=== PATIENT | female | born 1975 | race African-American/Black ===

== ENCOUNTER 2017-05-02 10:39 | Emergency (ER) | payer OTHER, SELFPAY ==
[2017-05-02] MEDS ORDERED: Ketorolac 30 MG/ML SDV IVPUSH ONE (11:06)
--- NOTE | 2017-05-02 11:08 | EDM.PDOC ---
ED HPI GENERAL MEDICAL PROBLEM - General Chief Complaint: Abdominal Pain Stated Complaint: ABDOMINAL PAIN Time Seen by Provider: 05/02/17 10:40 Source of Information: Reports: Patient History Limitations: Reports: No Limitations - History of Present Illness INITIAL COMMENTS - FREE TEXT/NARRATIVE: History of present illness: []Patient has a known diagnosis of a uterine fibroid and is scheduled to have removed by Dr. Bo. However she has not called to schedule the appointment. Patient denies any vaginal bleeding, fevers, chills, nausea or vomiting. Patient states her last menstrual period was March 20, she denies being . Review of systems: As per history of present illness and below otherwise all systems reviewed and negative. Past medical history: As per history of present illness and as reviewed below otherwise noncontributory. Surgical history: As per history of present illness and as reviewed below otherwise noncontributory. Social history: No reported history of drug or alcohol abuse. Family history: As per history of present illness and as reviewed below otherwise noncontributory. Physical exam: General: Well developed, well nourished in NAD HEENT: Atraumatic, normocephalic, pupils reactive, negative for conjunctival pallor or scleral icterus, mucous membranes moist, throat clear, neck supple, nontender, trachea midline. Lungs: Clear to auscultation, breath sounds equal bilaterally, chest nontender. Heart: S1S2, regular, negative for clicks, rubs, or JVD. Abdomen: Soft, nondistended, suprapubic tenderness without rebound or guarding. Negative for masses or hepatosplenomegaly. Negative for costovertebral tenderness. Pelvis: Stable nontender. Genitourinary: Deferred. Rectal: Deferred. Extremities: Atraumatic, negative for cords or calf pain. Neurovascular unremarkable. Neuro: Awake, alert, oriented. Cranial nerves II through XII unremarkable. Cerebellum unremarkable. Motor and sensory unremarkable throughout. Exam nonfocal. Diagnostics: []Patient's urine came back positive and ultrasound was then ordered. Her hCG came back at 225 correlating with a 4-5 week , ultrasound shows no gestational sac this time and cannot rule out an ectopic . She has no lateral pain labs are normal. Dr. Bo was consulted and he would like her to have hCG in 2 days and then see her in clinic on May 06 this week. Therapeutics: [] Impression: []First trimester Plan: []HCG Quant to be drawn in 2 days follow-up with Dr. Bo Tuesday this week when he Definitive disposition and diagnosis as appropriate pending reevaluation and review of above. abdomen Pain Score (Numeric/FACES): 8 - Related Data Allergies Allergy/AdvReac Type Severity Reaction Status Date / Time No Known Allergies Allergy Verified 05/02/17 10:59 Home Meds: Home Meds . [No Known Home Meds] 05/02/17 [History] ED ROS GENERAL - Review of Systems Review Of Systems: See Below (See history of present illness) ED EXAM, RENAL/ - Physical Exam Exam: See Below (See history of present illness) Course - Vital Signs Last Recorded V/S: Last Vital Signs Temp 36.8 C 05/02/17 10:59 Pulse 80 05/02/17 10:59 Resp 18 05/02/17 10:59 BP 141/94 H 05/02/17 10:59 Pulse Ox 98 05/02/17 10:59 - Orders/Labs/Meds Orders: Active Orders 24 hr Category Date Time Status Saline Lock Insert [OM.PC] Stat Oth 05/02/17 10:57 Ordered Labs: Laboratory Tests 05/02/17 05/02/17 05/02/17 Range/Units 10:50 10:55 10:55 WBC 10.10 (4.0-11.0) K/uL RBC 4.34 (4.30-5.90) M/uL Hgb 11.4 L (12.0-16.0) g/dL Hct 35.3 L (36.0-46.0) % MCV 81.3 (80.0-98.0) fL MCH 26.3 L (27.0-32.0) pg MCHC 32.3 (31.0-37.0) g/dL RDW Std Deviation 54.0 (28.0-62.0) fl RDW Coeff of Jarvis 18 H (11.0-15.0) % Plt Count 331 (150-400) K/uL MPV 11.30 (7.40-12.00) fL Neut % (Auto) 67.8 (48.0-80.0) % Lymph % (Auto) 19.2 (16.0-40.0) % [place] % (Auto) 9.4 (0.0-15.0) % Eos % (Auto) 3.4 (0.0-7.0) % Baso % (Auto) 0.2 (0.0-1.5) % Neut # (Auto) 6.9 H (1.4-5.7) K/uL Lymph # (Auto) 1.9 (0.6-2.4) K/uL [place] # (Auto) 1.0 H (0.0-0.8) K/uL Eos # (Auto) 0.3 (0.0-0.7) K/uL Baso # (Auto) 0.0 (0.0-0.1) K/uL Nucleated RBC % 0.0 /100WBC Nucleated RBCs # 0 K/uL Sodium Cancelled Potassium Cancelled Chloride Cancelled Carbon Dioxide Cancelled BUN Cancelled Creatinine Cancelled Est Cr Clr Drug Dosing Cancelled Estimated GFR (MDRD) Cancelled Glucose Cancelled Calcium Cancelled Total Bilirubin Cancelled AST Cancelled ALT Cancelled Alkaline Phosphatase Cancelled Total Protein Cancelled Albumin Cancelled Globulin Cancelled Albumin/Globulin Ratio Cancelled Lipase Cancelled HCG, Quant 225.3 mIU/mL Urine Color Urine Appearance Urine pH (5.0-8.0) Ur Specific [place] (1.001-1.035) Urine Protein (NEGATIVE) mg/dL Urine Glucose (UA) (NEGATIVE) mg/dL Urine Ketones (NEGATIVE) mg/dL Urine Occult Blood (NEGATIVE) Urine Nitrite (NEGATIVE) Urine Bilirubin (NEGATIVE) Urine Urobilinogen (<2.0) EU/dL Ur Leukocyte Esterase (NEGATIVE) Urine RBC (0-2/HPF) Urine WBC (0-5/HPF) Ur Epithelial Cells (NONE-FEW) Urine Bacteria (NEGATIVE) Urine HCG, Qual (NEGATIVE) 05/02/17 05/02/17 Range/Units 10:55 10:55 WBC (4.0-11.0) K/uL RBC (4.30-5.90) M/uL Hgb (12.0-16.0) g/dL Hct (36.0-46.0) % MCV (80.0-98.0) fL MCH (27.0-32.0) pg MCHC (31.0-37.0) g/dL RDW Std Deviation (28.0-62.0) fl RDW Coeff of Jarvis (11.0-15.0) % Plt Count (150-400) K/uL MPV (7.40-12.00) fL Neut % (Auto) (48.0-80.0) % Lymph % (Auto) (16.0-40.0) % [place] % (Auto) (0.0-15.0) % Eos % (Auto) (0.0-7.0) % Baso % (Auto) (0.0-1.5) % Neut # (Auto) (1.4-5.7) K/uL Lymph # (Auto) (0.6-2.4) K/uL [place] # (Auto) (0.0-0.8) K/uL Eos # (Auto) (0.0-0.7) K/uL Baso # (Auto) (0.0-0.1) K/uL Nucleated RBC % /100WBC Nucleated RBCs # K/uL Sodium Potassium Chloride Carbon Dioxide BUN Creatinine Est Cr Clr Drug Dosing Estimated GFR (MDRD) Glucose Calcium Total Bilirubin AST ALT Alkaline Phosphatase Total Protein Albumin Globulin Albumin/Globulin Ratio Lipase HCG, Quant mIU/mL Urine Color YELLOW Urine Appearance CLEAR Urine pH 7.0 (5.0-8.0) Ur Specific [place] 1.020 (1.001-1.035) Urine Protein NEGATIVE (NEGATIVE) mg/dL Urine Glucose (UA) NEGATIVE (NEGATIVE) mg/dL Urine Ketones NEGATIVE (NEGATIVE) mg/dL Urine Occult Blood NEGATIVE (NEGATIVE) Urine Nitrite NEGATIVE (NEGATIVE) Urine Bilirubin NEGATIVE (NEGATIVE) Urine Urobilinogen 0.2 (<2.0) EU/dL Ur Leukocyte Esterase TRACE (NEGATIVE) Urine RBC 0-2 (0-2/HPF) Urine WBC 0-4 (0-5/HPF) Ur Epithelial Cells FEW (NONE-FEW) Urine Bacteria FEW (NEGATIVE) Urine HCG, Qual POSITIVE (NEGATIVE) Meds: Medications Discontinued Medications Generic Name Dose Route Start Last Admin Trade Name Freq PRN Reason Stop Dose Admin Ketorolac Tromethamine 30 mg 05/02/17 11:06 05/02/17 11:16 Toradol IVPUSH 05/02/17 11:07 30 mg ONETIME ONE Administration Departure - Departure Time of Disposition: 13:16 Disposition: Home, Self-Care 01 Condition: Good Clinical Impression: Qualifiers: Weeks of gestation: less than 8 weeks Qualified Code(s): Z3A.01 - Less than 8 weeks gestation of - Discharge Information Referrals: PCP,None [Primary Care Provider] - Forms: ED Department Discharge Additional Instructions: The following information is given to patients seen in the emergency department who are being discharged to home. This information is to outline your options for follow-up care. We provide all patients seen in our emergency department with a follow-up referral. The need for follow-up, as well as the timing and circumstances, are variable depending upon the specifics of your emergency department visit. If you don't have a primary care physician on staff, we will provide you with a referral. We always advise you to contact your personal physician following an emergency department visit to inform them of the circumstance of the visit and for follow-up with them and/or the need for any referrals to a consulting specialist. The emergency department will also refer you to a specialist when appropriate. This referral assures that you have the opportunity for follow-up care with a specialist. All of these measure are taken in an effort to provide you with optimal care, which includes your follow-up. Under all circumstances we always encourage you to contact your private physician who remains a resource for coordinating your care. When calling for follow-up care, please make the office aware that this follow-up is from your recent emergency room visit. If for any reason you are refused follow-up, please contact the [facility] Emergency Department at and asked to speak to the emergency department charge nurse. Diagnosed with early . The ultrasound does not show sign of this however it may be too early in her to be detectable by ultrasound. Please have repeat hCG level draw in 2 days and follow-up with Dr. Bo on May 06 [facility] [address] [place] [id number] - My Orders Last 24 Hours: My Active Orders 05/02/17 10:57 Saline Lock Insert [OM.PC] Stat - Assessment/Plan Last 24 Hours: My Active Orders 05/02/17 10:57 Saline Lock Insert [OM.PC] Stat
--- NOTE | 2017-05-02 13:07 | US ---
EXAMINATION: Transabdominal and transvaginal pelvic ultrasound HISTORY: Pain COMPARISON: None TECHNIQUE: Grayscale, color Doppler, and spectral Doppler images obtained transvaginally and transab dominally. FINDINGS: The uterus is enlarged and heterogeneous in echotexture, likely containing multiple fibroi ds. The endometrial stripe thickness measures approximately 8 mm. No intrauterine gestational sac id entified. There is a 1.9 cm nabothian cyst. Both the left and right ovaries are normal in size, contour, and echogenicity demonstrating normal c olor and spectral Doppler flow. No adnexal masses. There is a small to moderate amount of free pelvi c fluid. No adnexal masses. IMPRESSION: 1. No intrauterine gestational sac identified, an ectopic is not excluded. Correlate with beta hCG. Follow-up beta-hCG and ultrasound may be beneficial. 2. Small to moderate free pelvic fluid. Line 3. Enlarged heterogeneous uterus likely containing multiple fibroids.
[2017-05-02 13:35] VITALS: BP 136/70
== END 2017-05-02 13:34 | disposition home or self-care (01) ==
LOC: MW.ED 10:39
DX: O99.89 Other specified diseases and conditions complicating pregnancy, childbirth and the puerperium (principal); R10.9 Unspecified abdominal pain; Z3A.01 Less than 8 weeks gestation of pregnancy
CPT/HCPCS: 36415; 76817; 81001; 81025; 84702; 85025; 96374; 99284; J1885

== ENCOUNTER 2017-06-05 15:33 | Emergency (ER) | payer OTHER, SELFPAY ==
--- NOTE | 2017-06-05 15:56 | EDM.PDOC ---
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 WITH CONTRACTIONS Time Seen by Provider: 06/05/17 15:56 Source of Information: Reports: Patient - History of Present Illness INITIAL COMMENTS - FREE TEXT/NARRATIVE: HISTORY AND PHYSICAL: History of present illness: []Patient -2 had a weeks presents with vaginal bleeding intermittently over the last 2 days and low back pain had 8 weeks by history Currently she rates pain 8 out of 10 low back abdomen pelvis patient is uncomfortable No fever nausea vomiting chills sweats no chest pain shortness breath headache dizziness or palpitation no bowel or urine symptoms Review of systems: As per history of present illness and below otherwise all systems reviewed and negative. Past medical history: As per history of present illness and as reviewed below otherwise noncontributory. Surgical history: As per history of present illness and as reviewed below otherwise noncontributory. Social history: No reported history of drug or alcohol abuse. Family history: As per history of present illness and as reviewed below otherwise noncontributory. Physical exam: HEENT: Atraumatic, normocephalic, pupils reactive, negative for conjunctival pallor or scleral icterus, mucous membranes moist, throat clear, neck supple, nontender, trachea midline. Lungs: Clear to auscultation, breath sounds equal bilaterally, chest nontender. Heart: S1S2, regular, negative for clicks, rubs, or JVD. Abdomen: Soft, nondistended, nontender. Negative for masses or hepatosplenomegaly. Negative for costovertebral tenderness. Pelvis: Stable nontender. Genitourinary: Deferred. Rectal: Deferred. Extremities: Atraumatic, negative for cords or calf pain. Neurovascular unremarkable. Neuro: Awake, alert, oriented. Cranial nerves II through XII unremarkable. Cerebellum unremarkable. Motor and sensory unremarkable throughout. Exam nonfocal. Diagnostics: []Lab as below Therapeutics: []Morphine 2 mg IV Dilaudid 1 mg IV discussed with he will see her in the clinic tomorrow Impression: Blighted ovum ABO type O posative Since approximately 8 weeks by uncertain dates Definitive disposition and diagnosis as appropriate pending reevaluation and review of above. 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 ED EXAM, GENERAL - Physical Exam Exam: See Below Course - Vital Signs Last Recorded V/S: Last Vital Signs Temp 36.1 C 06/05/17 15:43 Pulse 82 06/05/17 15:43 Resp 18 06/05/17 15:43 BP 151/100 H 06/05/17 15:43 Pulse Ox 98 06/05/17 15:43 - Orders/Labs/Meds Orders: Active Orders 24 hr Category Date Time Status OB 1st Tri Sgl 1st Gest [US] Stat Exams 06/05/17 17:04 Taken CULTURE URINE [] Stat Lab 06/05/17 16:40 Received Labs: Laboratory Tests 06/05/17 06/05/17 06/05/17 Range/Units 16:04 16:04 16:04 WBC 11.50 H (4.0-11.0) K/uL RBC 4.26 L (4.30-5.90) M/uL Hgb 11.9 L (12.0-16.0) g/dL Hct 35.4 L (36.0-46.0) % MCV 83.1 (80.0-98.0) fL MCH 27.9 (27.0-32.0) pg MCHC 33.6 (31.0-37.0) g/dL RDW Std Deviation 55.4 (28.0-62.0) fl RDW Coeff of Jarvis 18 H (11.0-15.0) % Plt Count 317 (150-400) K/uL MPV 11.10 (7.40-12.00) fL Neut % (Auto) 71.0 (48.0-80.0) % Lymph % (Auto) 16.2 (16.0-40.0) % [place] % (Auto) 9.0 (0.0-15.0) % Eos % (Auto) 3.7 (0.0-7.0) % Baso % (Auto) 0.1 (0.0-1.5) % Neut # (Auto) 8.2 H (1.4-5.7) K/uL Lymph # (Auto) 1.9 (0.6-2.4) K/uL [place] # (Auto) 1.0 H (0.0-0.8) K/uL Eos # (Auto) 0.4 (0.0-0.7) K/uL Baso # (Auto) 0.0 (0.0-0.1) K/uL Nucleated RBC % 0.0 /100WBC Nucleated RBCs # 0 K/uL Sodium 136 (136-146) mmol/L Potassium 3.6 (3.5-5.1) mmol/L Chloride 104 (98-110) mmol/L Carbon Dioxide 23 (21-31) mmol/L BUN 11 (6.0-23.0) mg/dL Creatinine 0.7 (0.6-1.5) mg/dL Est Cr Clr Drug Dosing 86.60 mL/min Estimated GFR (MDRD) > 60.0 ml/min Glucose 133 H (60-110) mg/dL Calcium 9.4 (8.8-10.8) mg/dL Total Bilirubin 0.2 (0.1-1.5) mg/dL AST 12 (5-40) IU/L ALT 16 (8-54) IU/L Alkaline Phosphatase 82 (40-150) Total Protein 7.2 (6.0-8.0) g/dL Albumin 3.7 (3.5-5.0) g/dL Globulin 3.5 (2.0-3.5) g/dL Albumin/Globulin Ratio 1.1 L (1.3-2.8) HCG, Quant 23507.7 mIU/mL Urine Color Urine Appearance Urine pH (5.0-8.0) Ur Specific [place] (1.001-1.035) Urine Protein (NEGATIVE) mg/dL Urine Glucose (UA) (NEGATIVE) mg/dL Urine Ketones (NEGATIVE) mg/dL Urine Occult Blood (NEGATIVE) Urine Nitrite (NEGATIVE) Urine Bilirubin (NEGATIVE) Urine Urobilinogen (<2.0) EU/dL Ur Leukocyte Esterase (NEGATIVE) Urine RBC (0-2/HPF) Urine WBC (0-5/HPF) Ur Epithelial Cells (NONE-FEW) Urine Bacteria (NEGATIVE) Blood Type O POSITIVE 06/05/17 Range/Units 16:40 WBC (4.0-11.0) K/uL RBC (4.30-5.90) M/uL Hgb (12.0-16.0) g/dL Hct (36.0-46.0) % MCV (80.0-98.0) fL MCH (27.0-32.0) pg MCHC (31.0-37.0) g/dL RDW Std Deviation (28.0-62.0) fl RDW Coeff of [place]vis (11.0-15.0) % Plt Count (150-400) K/uL MPV (7.40-12.00) fL Neut % (Auto) (48.0-80.0) % Lymph % (Auto) (16.0-40.0) % [place] % (Auto) (0.0-15.0) % Eos % (Auto) (0.0-7.0) % Baso % (Auto) (0.0-1.5) % Neut # (Auto) (1.4-5.7) K/uL Lymph # (Auto) (0.6-2.4) K/uL [place] # (Auto) (0.0-0.8) K/uL Eos # (Auto) (0.0-0.7) K/uL Baso # (Auto) (0.0-0.1) K/uL Nucleated RBC % /100WBC Nucleated RBCs # K/uL Sodium (136-146) mmol/L Potassium (3.5-5.1) mmol/L Chloride (98-110) mmol/L Carbon Dioxide (21-31) mmol/L BUN (6.0-23.0) mg/dL Creatinine (0.6-1.5) mg/dL Est Cr Clr Drug Dosing mL/min Estimated GFR (MDRD) ml/min Glucose (60-110) mg/dL Calcium (8.8-10.8) mg/dL Total Bilirubin (0.1-1.5) mg/dL AST (5-40) IU/L ALT (8-54) IU/L Alkaline Phosphatase (40-150) Total Protein (6.0-8.0) g/dL Albumin (3.5-5.0) g/dL Globulin (2.0-3.5) g/dL Albumin/Globulin Ratio (1.3-2.8) HCG, Quant mIU/mL Urine Color YELLOW Urine Appearance SLT CLOUDY Urine pH 6.5 (5.0-8.0) Ur Specific [place] <= 1.005 (1.001-1.035) Urine Protein NEGATIVE (NEGATIVE) mg/dL Urine Glucose (UA) NEGATIVE (NEGATIVE) mg/dL Urine Ketones NEGATIVE (NEGATIVE) mg/dL Urine Occult Blood LARGE H (NEGATIVE) Urine Nitrite NEGATIVE (NEGATIVE) Urine Bilirubin NEGATIVE (NEGATIVE) Urine Urobilinogen 0.2 (<2.0) EU/dL Ur Leukocyte Esterase TRACE (NEGATIVE) Urine RBC 2-3 (0-2/HPF) Urine WBC 2-5 (0-5/HPF) Ur Epithelial Cells MANY (NONE-FEW) Urine Bacteria 1+ H (NEGATIVE) Blood Type Meds: Medications Discontinued Medications Generic Name Dose Route Start Last Admin Trade Name Freq PRN Reason Stop Dose Admin Hydromorphone HCl 1 mg 06/05/17 18:40 06/05/17 18:50 Dilaudid IVPUSH 06/05/17 18:41 1 mg ONETIME ONE Administration Morphine Sulfate 2 mg 06/05/17 16:18 06/05/17 16:43 Morphine IV 06/05/17 16:19 2 mg ONETIME ONE Administration Ondansetron HCl 8 mg 06/05/17 16:18 06/05/17 16:44 Zofran IVPUSH 06/05/17 16:19 8 mg ONETIME ONE Administration Departure - Departure Time of Disposition: 18:53 Disposition: Home, Self-Care 01 Condition: Good Clinical Impression: Blighted ovum - Discharge Information Referrals: Connor Bo MD [Primary Care Provider] - Forms: ED Department Discharge Additional Instructions: Follow-up with Dr. Bo tomorrow in his clinic he will be expecting Medication as prescribed for pain Return if symptoms persist or worsen or fever nausea vomiting chills sweats The following information is given to patients seen in the emergency department who are being discharged to home. This information is to outline your options for follow-up care. We provide all patients seen in our emergency department with a follow-up referral. The need for follow-up, as well as the timing and circumstances, are variable depending upon the specifics of your emergency department visit. If you don't have a primary care physician on staff, we will provide you with a referral. We always advise you to contact your personal physician following an emergency department visit to inform them of the circumstance of the visit and for follow-up with them and/or the need for any referrals to a consulting specialist. The emergency department will also refer you to a specialist when appropriate. This referral assures that you have the opportunity for follow-up care with a specialist. All of these measure are taken in an effort to provide you with optimal care, which includes your follow-up. Under all circumstances we always encourage you to contact your private physician who remains a resource for coordinating your care. When calling for follow-up care, please make the office aware that this follow-up is from your recent emergency room visit. If for any reason you are refused follow-up, please contact the [facility] emergency department at and asked to speak to the emergency department charge nurse. - My Orders Last 24 Hours: My Active Orders 06/05/17 16:40 CULTURE URINE [RM] Stat 06/05/17 17:04 OB 1st Tri Sgl 1st Gest [US] Stat - Assessment/Plan Last 24 Hours: My Active Orders 06/05/17 16:40 CULTURE URINE [RM] Stat 06/05/17 17:04 OB 1st Tri Sgl 1st Gest [US] Stat
[2017-06-05] MEDS ORDERED: Ondansetron 4 MG/2 ML SDV IVPUSH ONE (16:18)
[2017-06-05] MEDS ORDERED: Morphine 10 MG/ML Syringe IV ONE (16:18)
[2017-06-05 16:35] LABS: CHLORIDE,CL 104 mmol/L (98-110); SODIUM,NA 136 mmol/L (136-146)
[2017-06-05] MEDS ORDERED: HYDROmorphone 2 MG/ML Syringe IVPUSH ONE (18:40)
[2017-06-06 05:32] VITALS: BP 134/93
--- NOTE | 2017-06-06 13:58 | US ---
EXAM DATE: 06/05/17 PATIENT'S AGE: 42 Patient: SREE WADE Facility: [place], [place] Site . Site : [id number] Study: US OB Pelvis [id number] 5:54:35 PM Ordering Physician: Celestine Mcgill Final Report: INDICATION: Pelvic pain, spotting, LMP March 20, 2017 TECHNIQUE: Ultrasound OB pelvis transvaginal. Real-time licona-scale imaging of the pelvis was performed. COMPARISON: May 02, 2017 FINDINGS: Sonographic imaging demonstrates an irregularly shaped, oval to round hypodensity within the uterus likely representing a gestational sac. Mean gestational sac diameter is 1.2 cm. No pole or yolk sac is identified. Enlarged uterus due to a 5 cm diameter fibroid. The ovaries are of normal size. Normal arterial and venous flow to both ovaries. There are no suspicious fluid collections noted in the cul-de-sac. IMPRESSION: Round hyperdensity within the uterus without evidence for pole or yolk sac. This may represent an early gestational sac, although the size does not correspond with the LMP. Recommend followup pelvic ultrasound and beta HCG. Dictated by Alma Rosa Cote MD @ Jun 05 2017 6:12PM (Electronic Signature) Report Signed by Proxy. PHILL
== END 2017-06-05 21:00 | disposition home or self-care (01) ==
LOC: MW.ED 15:33
DX: O02.0 Blighted ovum and nonhydatidiform mole (principal); Z3A.08 8 weeks gestation of pregnancy
CPT/HCPCS: 36415; 76801; 80053; 81001; 84702; 85025; 86900; 86901; 87086; 96374; 96375; 99284; J1170; J2270; J2405; 99283

== ENCOUNTER 2017-06-09 08:45 | Day surgery (SDC) | payer OTHER, SELFPAY ==
[~2017-06-09 08:45] MED LIST: Sodium Chloride 0.9% 10 ML Syringe FLUSH PRN; Sodium Chloride 0.9% 2.5 ML Syringe FLUSH PRN
--- NOTE | 2017-06-09 09:12 | PCM.PREANE ---
Preanesthetic Assessment - Anesthesia/Transfusion/Family Hx Anesthesia History: Prior Anesthesia Without Reaction Family History of Anesthesia Reaction: No Transfusion History: No Prior Transfusion(s) Intubation History: Unknown - Physical Assessment O2 Sat by Pulse Oximetry: 99 Respiratory Rate: 16 Vital Signs: Last Vital Signs Temp 36.6 C 06/09/17 09:04 Pulse 79 06/09/17 09:04 Resp 16 06/09/17 09:04 BP 131/84 06/09/17 09:04 Pulse Ox 99 06/09/17 09:04 Height: 1.63 m Weight: 98.43 kg ASA Class: 2 Mental Status: Alert & Oriented x3 Airway Class: Mallampati = 2 Dentition: Reports: Normal Dentition Thyro-Mental Finger Breadths: 3 Mouth Opening Finger Breadths: 3 ROM/Head Extension: Full Lungs: Clear to Auscultation, Normal Respiratory Effort Cardiovascular: Regular Rate, Regular Rhythm - Allergies Allergies/Adverse Reactions: Allergies Allergy/AdvReac Type Severity Reaction Status Date / Time No Known Allergies Allergy Verified 06/05/17 15:42 - Blood Blood Available: No - Anesthesia Plan Pre-Op Medication Ordered: None - Acknowledgements Anesthesia Type Planned: General Anesthesia Pt an Appropriate Candidate for the Planned Anesthesia: Yes Alternatives and Risks of Anesthesia Discussed w Pt/Guardian: Yes Pt/Guardian Understands and Agrees with Anesthesia Plan: Yes PreAnesthesia Questionnaire - Past Health History Medical/Surgical History: Denies Medical/Surgical History HEENT History: Reports: None Cardiovascular History: Reports: None Respiratory History: Reports: None Gastrointestinal History: Reports: GERD Other Gastrointestinal History: during Genitourinary History: Reports: None PNP History: Reports: , Other (See Below) (blighted ovum ( incomplete )) Musculoskeletal History: Reports: Back Pain, Chronic Neurological History: Reports: None Psychiatric History: Reports: None Endocrine/Metabolic History: Reports: Obesity/BMI 30+ Hematologic History: Reports: None Immunologic History: Reports: None Oncologic (Cancer) History: Reports: Other (See Below) Other Oncologic History: fibroid Dermatologic History: Reports: None - Infectious Disease History Infectious Disease History: Reports: None - Past Surgical History Female Surgical History: Reports: Section - SUBSTANCE USE Smoking Status *Q: Never Smoker Recreational Drug Use History: No - HOME MEDS Home Medications: Home Meds Pnv No.121/Iron/Folic Acid [ Multivitamin Tablet] 1 each PO DAILY [History] - CURRENT (IN HOUSE) MEDS Current Meds: Current Medications Lactated Ringer's (Ringers, Lactated) 1,000 mls @ 125 mls/hr IV ASDIRECTED KARLI Sodium Chloride (Saline Flush) 10 ml FLUSH ASDIRECTED PRN PRN Reason: Keep Vein Open Sodium Chloride (Saline Flush) 2.5 ml FLUSH ASDIRECTED PRN PRN Reason: Keep Vein Open
[2017-06-09] MEDS ORDERED: Lactated Ringers 1,000 ML IV SCH (09:15)
[2017-06-09] MEDS ORDERED: Midazolam 1 MG/ML 2 ML SDV ONE (10:02)
[2017-06-09] MEDS ORDERED: fentaNYL 100 MCG/2 ML SDV ONE (10:02)
[2017-06-09] MEDS ORDERED: Ondansetron 4 MG/2 ML SDV ONE (10:02)
[2017-06-09] MEDS ORDERED: Propofol 200 MG/20 ML SDV ONE (10:02)
[2017-06-09 10:08] LABS: CHLORIDE,CL 106 mmol/L (98-110); SODIUM,NA 137 mmol/L (136-146)
[2017-06-09] MEDS ORDERED: fentaNYL 100 MCG/2 ML SDV IVPUSH PRN (10:18)
[2017-06-09] MEDS ORDERED: Promethazine 25 MG/ML SDV IM PRN (11:11)
[2017-06-09] MEDS ORDERED: Ketorolac 30 MG/ML SDV IVPUSH ONE (11:11)
[2017-06-09] MEDS ORDERED: Morphine 2 MG/ML Syringe IVPUSH PRN (11:11)
[2017-06-09] MEDS ORDERED: Acetaminophen/oxyCODONE 325-5 MG Tab PO PRN ×2 (11:11)
[2017-06-09] MEDS ORDERED: Morphine 4 MG/ML Syringe IVPUSH PRN (11:11)
[2017-06-09] MEDS ORDERED: Ondansetron 4 MG/2 ML SDV IVPUSH PRN (11:11)
[2017-06-09] MEDS ORDERED: Ketorolac 30 MG/ML SDV IVPUSH PRN (11:11)
[2017-06-09] MEDS ORDERED: Methylergonovine 0.2 MG/1 ML Amp ONE (11:14)
--- NOTE | 2017-06-09 11:14 | PCM.OPNOTE ---
- General Post-Op/Procedure Note Date of Surgery/Procedure: 06/09/17 Operative Procedure(s): D&E Pre Op Diagnosis: Blighted ovum Post-Op Diagnosis: Same Anesthesia Technique: General Mask Primary Surgeon: Connor Bo EBL in mLs: 125 Complications: None Condition: Good
--- NOTE | 2017-06-09 11:15 | PCM.DCSUM1 ---
Discharge Summary - Discharge Data Discharge Date: 06/09/17 Discharge Disposition: Home, Self-Care 01 Condition: Good - Patient Summary/Data Operative Procedure(s) Performed: D&E - Patient Instructions Diet: Usual Diet as Tolerated Activity: As Tolerated Driving: Do Not Drive Showering/Bathing: February Shower Notify Provider of: Fever, Increased Pain, Nausea and/or Vomiting - Discharge Plan Home Medications: Home Meds Pnv No.121/Iron/Folic Acid [ Multivitamin Tablet] 1 each PO DAILY [History] - General Info Date of Service: 06/09/17 Functional Status: Reports: Pain Controlled - Review of Systems General: Reports: No Symptoms HEENT: Reports: No Symptoms Pulmonary: Reports: No Symptoms Cardiovascular: Reports: No Symptoms Gastrointestinal: Reports: No Symptoms Genitourinary: Reports: No Symptoms Musculoskeletal: Reports: No Symptoms Skin: Reports: No Symptoms Neurological: Reports: No Symptoms Psychiatric: Reports: No Symptoms - Patient Data Vitals - Most Recent: Last Vital Signs Temp 36.6 C 06/09/17 09:04 Pulse 79 06/09/17 09:04 Resp 16 06/09/17 09:12 BP 131/84 06/09/17 09:04 Pulse Ox 99 06/09/17 09:12 Weight - Most Recent: 98.43 kg Lab Results - Last 24 hrs: Laboratory Results - last 24 hr 06/09/17 06/09/17 06/09/17 Range/Units 09:28 09:28 09:28 WBC 8.99 (4.0-11.0) K/uL RBC 4.40 (4.30-5.90) M/uL Hgb 12.4 (12.0-16.0) g/dL Hct 37.3 (36.0-46.0) % MCV 84.8 (80.0-98.0) fL MCH 28.2 (27.0-32.0) pg MCHC 33.2 (31.0-37.0) g/dL RDW Std Deviation 56.3 (28.0-62.0) fl RDW Coeff of Jarvis 18 H (11.0-15.0) % Plt Count 297 (150-400) K/uL MPV 11.00 (7.40-12.00) fL Nucleated RBC % 0.0 /100WBC Nucleated RBCs # 0 K/uL Sodium 137 (136-146) mmol/L Potassium 3.9 (3.5-5.1) mmol/L Chloride 106 (98-110) mmol/L Carbon Dioxide 23 (21-31) mmol/L BUN 9 (6.0-23.0) mg/dL Creatinine 0.7 (0.6-1.5) mg/dL Est Cr Clr Drug Dosing 90.41 mL/min Estimated GFR (MDRD) > 60.0 ml/min Glucose 100 (60-110) mg/dL Calcium 9.0 (8.8-10.8) mg/dL Blood Type O POSITIVE Antibody Screen NEGATIVE Med Orders - Current: Current Medications Fentanyl (Sublimaze) 50 mcg IVPUSH SEECOMMENT PRN PRN Reason: Pain (moderate 4-6) Lactated Ringer's (Ringers, Lactated) 1,000 mls @ 125 mls/hr IV ASDIRECTED KARLI Ketorolac Tromethamine (Toradol) 30 mg IVPUSH ONETIME ONE Stop: 06/09/17 11:12 Ketorolac Tromethamine (Toradol) 30 mg IVPUSH Q6H PRN PRN Reason: Pain (severe 7-10) Stop: 06/14/17 11:11 Morphine Sulfate (Morphine) 2 mg IVPUSH Q2H PRN PRN Reason: Pain (severe 7-10) Morphine Sulfate (Morphine) 4 mg IVPUSH Q2H PRN PRN Reason: Pain (severe 7-10) Ondansetron HCl (Zofran) 4 mg IVPUSH Q6H PRN PRN Reason: Nausea/Vomiting Oxycodone/Acetaminophen (Percocet 325-5 Mg) 1 tab PO Q4H PRN PRN Reason: Pain (moderate 4-6) Oxycodone/Acetaminophen (Percocet 325-5 Mg) 2 tab PO Q4H PRN PRN Reason: Pain (moderate 4-6) Promethazine HCl (Phenergan) 25 mg IM Q6H PRN PRN Reason: Nausea/Vomiting Sodium Chloride (Saline Flush) 10 ml FLUSH ASDIRECTED PRN PRN Reason: Keep Vein Open Sodium Chloride (Saline Flush) 2.5 ml FLUSH ASDIRECTED PRN PRN Reason: Keep Vein Open Discontinued Medications Fentanyl (Sublimaze) Confirm Administered Dose 100 mcg .ROUTE .STK-MED ONE Stop: 06/09/17 10:03 Midazolam HCl (Versed 1 Mg/Ml) Confirm Administered Dose 2 mg .ROUTE .STK-MED ONE Stop: 06/09/17 10:03 Ondansetron HCl (Zofran) Confirm Administered Dose 4 mg .ROUTE .STK-MED ONE Stop: 06/09/17 10:03 Propofol (Diprivan 20 Ml) Confirm Administered Dose 200 mg .ROUTE .STK-MED ONE Stop: 06/09/17 10:03 - Exam General: Reports: Alert, Oriented HEENT: Reports: Pupils Equal, Pupils Reactive, EOMI, Mucous Membr. Moist/[place] Neck: Reports: Supple Lungs: Reports: Clear to Auscultation, Normal Respiratory Effort Cardiovascular: Reports: Regular Rate, Regular Rhythm GI/Abdominal Exam: Normal Bowel Sounds, Soft, Non-Tender, No Organomegaly, No Distention, No Abnormal Bruit, No Mass, Pelvis Stable (Female) Exam: Normal External Exam, Normal Speculum Exam, Normal Bimanual Exam Rectal (Female) Exam: Normal Exam, Normal Rectal Tone Back Exam: Reports: Normal Inspection, Full Range of Motion Extremities: Normal Inspection, Normal Range of Motion, Non-Tender, No Pedal Edema, Normal Capillary Refill Skin: Reports: Warm, Dry, Intact Wound/Incisions: Reports: Healing Well Neurological: Reports: No New Focal Deficit Psy/Mental Status: Reports: Alert, Normal Affect, Normal Mood *Q Meaningful Use (DIS) - VTE *Q VTE Criteria *Q: - Stroke *Q Stroke Criteria *Q: - AMI *Q AMI Criteria *Q:
--- NOTE | 2017-06-09 11:22 | PCM.POSTAN ---
POST ANESTHESIA ASSESSMENT - MENTAL STATUS Mental Status: Alert, Oriented - RESPIRATORY Respiratory Status: Respiratory Rate WNL, Airway Patent, O2 Saturation Stable - CARDIOVASCULAR CV Status: Pulse Rate WNL, Blood Pressure Stable - GASTROINTESTINAL GI Status: No Symptoms - PAIN Pain Score: 0 - POST OP HYDRATION Hydration Status: Adequate & Stable
[2017-06-09 12:35] VITALS: BP 136/82
--- NOTE | 2017-06-09 14:57 | OR ---
SURGEON: Connor Bo MD DATE OF PROCEDURE: 06/09/2017 PREOPERATIVE DIAGNOSES: Blighted ovum. POSTOPERATIVE DIAGNOSIS: Blighted ovum. OPERATION PERFORMED: Dilatation and evacuation. DIRECTOR OF SPA AND GUEST EXPERIENCE: OR tech. ANESTHESIA: MAC and general, Cecilia Scott and Dr. Arroyo. ESTIMATED BLOOD LOSS: 125 mL. COMPLICATIONS: None. FINDINGS: Products of conception. INDICATION FOR SURGERY: This patient has a positive hCG with a declining level and spotting. She had a repeated ultrasound, which shows pole. No cardiac activity. The patient has been to do a D and E. PROCEDURE IN DETAIL: The patient was brought to the OR, properly identified, and after adequate level of anesthesia, the patient was placed in lithotomy position, prepped and draped in sterile fashion as usual. The cervix was already dilated to accommodate, #8 cannula. The cannula was placed in the peritoneal cavity and the endometrial cavity was evacuated completely and uniformly from all products of conception. Once this was done, the procedure ended and the cannula removed. The patient tolerated the procedure well and went to recovery room in stable general condition. YODIT / BURAK /[id number]
== END 2017-06-09 12:45 | disposition home or self-care (01) ==
LOC: MW.SDS 08:45
PROVIDERS: ATTEND Obstetrics & Gynecology
DX: O02.0 Blighted ovum and nonhydatidiform mole (principal); E66.9 Obesity, unspecified; Z79.899 Other long term (current) drug therapy; Z98.890 Other specified postprocedural states; Z68.38 Body mass index [BMI] 38.0-38.9, adult
CPT/HCPCS: 36415; 59812; 80048; 85027; 86850; 86900; 86901; J2250; J2405; J3010; 00940; 88305; J2210; J2704

== ENCOUNTER 2017-07-07 08:50 | Emergency (ER) | payer OTHER, SELFPAY ==
[2017-07-07] MEDS ORDERED: methylPREDNISolone Sodium Succinate 2 GM Vial IV ONE (09:42)
[2017-07-07] MEDS ORDERED: Famotidine 20 MG/2 ML SDV IVPUSH ONE (09:42)
[2017-07-07] MEDS ORDERED: diphenhydrAMINE 50 MG/ML SDV IVPUSH ONE (09:44)
[2017-07-07] MEDS ORDERED: methylPREDNISolone Sodium Succinate 125 MG/2 ML SDV IM ONE (09:47)
[2017-07-07] MEDS ORDERED: methylPREDNISolone Sodium Succinate 125 MG/2 ML SDV IVPUSH ONE (09:49)
[2017-07-07] MEDS ORDERED: Sodium Chloride 0.9% 1,000 ML IV ONE (09:50)
[2017-07-07 10:21] VITALS: BP 137/86
--- NOTE | 2017-07-07 10:39 | EDM.PDOC ---
ED HPI GENERAL MEDICAL PROBLEM - General Chief Complaint: Skin Complaint Stated Complaint: BODY ITCHY Time Seen by Provider: 07/07/17 09:10 Source of Information: Reports: Patient History Limitations: Reports: No Limitations - History of Present Illness INITIAL COMMENTS - FREE TEXT/NARRATIVE: HISTORY AND PHYSICAL: History of present illness: [42-year-old female with no prior history of idiopathic urticaria or allergic reactions now presents to the emergency department with hives and itching since yesterday. Patient states that yesterday afternoon she has had generalized itching and hives. She has no difficulty speaking voice changes shortness of breath or wheezing. She has continued to be itchy overnight as well as had persistent hives but she's not taken any medicines. Patient has no known allergies.] Review of systems: As per history of present illness and below otherwise all systems reviewed and negative. Past medical history: As per history of present illness and as reviewed below otherwise noncontributory. Surgical history: As per history of present illness and as reviewed below otherwise noncontributory. Social history: No reported history of drug or alcohol abuse. Family history: As per history of present illness and as reviewed below otherwise noncontributory. Physical exam: Well-appearing female complaining of itching scratching her skin frequently no skin lesions except urticaria which is diffuse and generalized. Normal oropharynx normal voice no stridor no wheezing no tachycardia benign exam otherwise HEENT: Atraumatic, normocephalic, pupils reactive, negative for conjunctival pallor or scleral icterus, mucous membranes moist, throat clear, neck supple, nontender, trachea midline. Lungs: Clear to auscultation, breath sounds equal bilaterally, chest nontender. Heart: S1S2, regular, negative for clicks, rubs, or JVD. Abdomen: Soft, nondistended, nontender. Negative for masses or hepatosplenomegaly. Negative for costovertebral tenderness. Pelvis: Stable nontender. Genitourinary: Deferred. Rectal: Deferred. Extremities: Atraumatic, negative for cords or calf pain. Neurovascular unremarkable. Neuro: Awake, alert, oriented. Cranial nerves grossly unremarkable. Cerebellum unremarkable. Motor and sensory unremarkable throughout. Exam nonfocal. Diagnostics: [] Therapeutics: [Solu-Medrol Benadryl Pepcid] Impression: [Urticaria Acute pruritus] Plan: [Signs and symptoms consistent with urticaria, allergic versus idiopathic. No history of either and patient has no history of allergies no known trigger can be identified. Patient with no evidence of anaphylaxis. She is improved after treatment. We'll prescribe steroid. Patient is aware to take Benadryl and Pepcid as needed and after resolution of her symptoms follow-up with her primary care for allergy testing. No further workup or treatment will be indicated patient agrees with outpatient follow-up and strict return precautions will be given Definitive disposition and diagnosis as appropriate pending reevaluation and review of above. - Related Data Allergies Allergy/AdvReac Type Severity Reaction Status Date / Time No Known Allergies Allergy Verified 06/05/17 15:42 Home Meds: Home Meds Famotidine [Pepcid] 20 mg PO BID #14 tablet 07/07/17 [Rx] Prednisone [IMW: predniSONE] 60 mg PO WITHBREAKFAST #5 tab 07/07/17 [Rx] Past Medical History - Past Health History Medical/Surgical History: Denies Medical/Surgical History HEENT History: Reports: None Cardiovascular History: Reports: None Respiratory History: Reports: None Gastrointestinal History: Reports: GERD Other Gastrointestinal History: during Genitourinary History: Reports: None [employer] History: Reports: , Other (See Below) Other OB/BYN History: miscarriage Musculoskeletal History: Reports: Back Pain, Chronic Neurological History: Reports: None Psychiatric History: Reports: None Endocrine/Metabolic History: Reports: Obesity/BMI 30+ Hematologic History: Reports: None Immunologic History: Reports: None Oncologic (Cancer) History: Reports: Other (See Below) Other Oncologic History: fibroid Dermatologic History: Reports: None - Infectious Disease History Infectious Disease History: Reports: None - Past Surgical History Head Surgeries/Procedures: Reports: None Female Surgical History: Reports: Section Social & Family History - Family History Family Medical History: Noncontributory - Tobacco Use Smoking Status *Q: Never Smoker Second Hand Smoke Exposure: No - Caffeine Use Caffeine Use: Reports: Coffee - Recreational Drug Use Recreational Drug Use: No Drug Use in Last 12 Months: No ED ROS GENERAL - Review of Systems Review Of Systems: See Below (History of present illness) ED EXAM, SKIN/RASH Exam: See Below (History of present illness) Course - Vital Signs Last Recorded V/S: Last Vital Signs Temp 36.1 C 07/07/17 10:18 Pulse 70 07/07/17 10:18 Resp 18 07/07/17 10:18 BP 137/86 07/07/17 10:18 Pulse Ox 100 07/07/17 10:18 - Orders/Labs/Meds Orders: Active Orders 24 hr Category Date Time Status Sodium Chloride 0.9% [Normal Saline] 1,000 ml Med 07/07/17 09:50 Active IV ONETIME Medication Orders Sodium Chloride (Normal Saline) 1,000 mls @ 999 mls/hr IV ONETIME ONE Stop: 07/07/17 10:50 Last Admin: 07/07/17 10:08 Dose: 999 mls/hr Meds: Medications Generic Name Dose Route Start Last Admin Trade Name Freq PRN Reason Stop Dose Admin Sodium Chloride 1,000 mls @ 999 mls/hr 07/07/17 09:50 07/07/17 10:08 Normal Saline IV 07/07/17 10:50 999 mls/hr ONETIME ONE Administration Discontinued Medications Generic Name Dose Route Start Last Admin Trade Name Freq PRN Reason Stop Dose Admin Diphenhydramine HCl 25 mg 07/07/17 09:44 07/07/17 10:11 Benadryl IVPUSH 07/07/17 09:45 25 mg ONETIME ONE Administration Famotidine 20 mg 07/07/17 09:42 07/07/17 10:13 Pepcid IVPUSH 07/07/17 09:43 20 mg ONETIME ONE Administration Methylprednisolone Sodium Succinate 125 mg 07/07/17 09:49 07/07/17 10:09 Solu-Medrol IVPUSH 07/07/17 09:50 125 mg ONETIME ONE Administration Departure - Departure Time of Disposition: 10:39 Disposition: Home, Self-Care 01 Condition: Good Clinical Impression: Urticaria, Pruritic rash - Discharge Information Referrals: PCP,None [Primary Care Provider] - Additional Instructions: Is not clear what has caused your hives, or urticaria since yesterday. Sometimes hives just happen for no reason. This is called idiopathic urticaria. Often hives are result of allergic reaction. As you have no known allergies and you are not able to identify any possible allergic trigger we cannot be sure whether or not this may have caused your hives and itching. Finish prednisone as prescribed once a day for 5 days. Take Benadryl 25-50 mg every 4-6 hours as needed for itching and hives. If he still have symptoms continue Pepcid 20 mg twice a day as needed as well. After your symptoms resolve follow-up with your DrLilo for allergy testing. Return immediately to the emergency department if you have any signs of airway problems such as shortness of breath wheezing voice changes or difficulty breathing. - My Orders Last 24 Hours: My Active Orders 07/07/17 09:50 Sodium Chloride 0.9% [Normal Saline] 1,000 ml IV ONETIME - Assessment/Plan Last 24 Hours: My Active Orders 07/07/17 09:50 Sodium Chloride 0.9% [Normal Saline] 1,000 ml IV ONETIME
== END 2017-07-07 11:25 | disposition home or self-care (01) ==
LOC: MW.ED 08:50
DX: L50.9 Urticaria, unspecified (principal); L29.9 Pruritus, unspecified
CPT/HCPCS: 96361; 96374; 96375; 99282; J1200; J2930; J7040

== ENCOUNTER 2017-07-09 09:32 | Emergency (ER) | payer OTHER, SELFPAY ==
[2017-07-09] MEDS ORDERED: Morphine 2 MG/ML Syringe IVPUSH ONE (09:52)
[2017-07-09] MEDS ORDERED: Pantoprazole 40 MG Vial IVPUSH ONE (09:52)
[2017-07-09] MEDS ORDERED: Sodium Chloride 0.9% 1,000 ML IV ONE (09:52)
[2017-07-09] MEDS ORDERED: Sodium Chloride 0.9% 10 ML Syringe FLUSH PRN (09:53)
[2017-07-09] MEDS ORDERED: Sodium Chloride 0.9% 2.5 ML Syringe FLUSH PRN (09:53)
[2017-07-09] MEDS ORDERED: Alum Hydrox/Mag Hydrox/Simeth 15 ML, Metoclopramide 5 MG, Lidocaine 2% 5 ML PO ONE ×3 (09:53)
--- NOTE | 2017-07-09 09:54 | EDM.PDOC ---
ED HPI GENERAL MEDICAL PROBLEM - General Chief Complaint: Abdominal Pain Stated Complaint: CHEST PAIN Time Seen by Provider: 07/09/17 09:38 - History of Present Illness INITIAL COMMENTS - FREE TEXT/NARRATIVE: HISTORY AND PHYSICAL: History of present illness: The patient is a 42-year-old female with surgical history only of D&Cs and presents with complaints of epigastric and upper abdominal pain that started yesterday around 12 noon. Patient says that the pain started after eating beans and rice and she has no history of food intolerance. The pain has been persistent and she has only taken one Advil and no other jgrc-mel-estnldh medications for discomfort. She has not had nausea chest pain or shortness of breath but has felt feverish. She's had normal bowel movements without diarrhea or black or bloody stools. The pain starts in the epigastric area and she says it goes to the right and left but there is no lower abdominal pain. The patient underwent a D&C for a blighted ovum on June 09 and has not had a period since that time. The patient was seen here in the emergency department 2 days ago for pruritus without a rash and is currently taking prednisone and Benadryl for that but says she still feels. She again has no rash. The patient describes the pain as a burning and deep pain not this early a crampy pain. She has never had any GI patient says that after the pain started she was still able to continue to eat and drink normally with no anorexia but that she felt that the pain was worsened after eating. Review of systems: As per history of present illness and below otherwise all systems reviewed and negative. Past medical history: As per history of present illness and as reviewed below otherwise noncontributory. Surgical history: As per history of present illness and as reviewed below otherwise noncontributory. Social history: No reported history of drug or alcohol abuse. Family history: As per history of present illness and as reviewed below otherwise noncontributory. Physical exam: Gen.: Well-developed well-nourished overweight female who is nontoxic and somewhat dramatic on my evaluation. Vital signs have been reviewed by me including the blood pressure. HEENT: Atraumatic, normocephalic, pupils reactive, negative for conjunctival pallor or scleral icterus, mucous membranes moist, throat clear, neck supple, nontender, trachea midline. Lungs: Clear to auscultation, breath sounds equal bilaterally, chest nontender. No work of breathing or sensory muscle use Heart: S1S2, regular rate and rhythm no overt murmurs Abdomen: Soft, nondistended, there is mild tenderness to deep palpation in the epigastric and right upper/left upper quadrants without rebound or guarding. Exam is somewhat exaggerated. There is hypoactive bowel sounds. Negative for masses or hepatosplenomegaly. Pelvis: Stable nontender. Genitourinary: Deferred. Rectal: Deferred. Extremities: Atraumatic, negative for cords or calf pain. Neurovascular unremarkable. Neuro: Awake, alert, oriented. Cranial nerves II through XII unremarkable. Cerebellum unremarkable. Motor and sensory unremarkable throughout. Exam nonfocal. Diagnostics: CBC CMP amylase lipase UA serum hCG CT scan of the abdomen and pelvis EKG Therapeutics: IV fluids Zofran morphine protonix GI cocktail 1120: Patient much more comfortable and calmer and room and repeat blood pressure at this time is 166/83. I will discuss with her that she does need to follow the blood pressure up as that is still elevated and needs further evaluation if it persists 1145: I discussed with the patient all testing results and she overall looks much improved. I've advised her on a strict low fat diet avoidance of caffeinated products and spicy and heavy foods. I will place her on Prevacid and also give her a few tramadol and have advised close follow-up in our clinic for further testing which may include an endoscopy or hydroscan. I've also advised her again about her blood pressure in the need for follow-up. She denies any headache chest pain shortness of breath or neurosensory changes and at this point because there is such variability in the range I will refrain from starting treatment until she can follow-up with the clinic and have advised her on reasons to return to the ED. Impression: Upper abdominal pain etiology unclear stable, episodic hypertension stable Definitive disposition and diagnosis as appropriate pending reevaluation and review of above. epigastric Pain Score (Numeric/FACES): 8 - Related Data Allergies Allergy/AdvReac Type Severity Reaction Status Date / Time No Known Allergies Allergy Verified 07/09/17 09:46 Home Meds: Home Meds Famotidine [Pepcid] 20 mg PO BID #14 tablet 07/07/17 [Rx] Prednisone [IMW: predniSONE] 60 mg PO WITHBREAKFAST #5 tab 07/07/17 [Rx] Past Medical History - Past Health History Medical/Surgical History: Denies Medical/Surgical History HEENT History: Reports: None Cardiovascular History: Reports: None Respiratory History: Reports: None Gastrointestinal History: Reports: GERD Other Gastrointestinal History: during Genitourinary History: Reports: None 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: 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: , Other (See Below) Other OB/BYN History: miscarriage Musculoskeletal History: Reports: Back Pain, Chronic Neurological History: Reports: None Psychiatric History: Reports: None Endocrine/Metabolic History: Reports: Obesity/BMI 30+ Hematologic History: Reports: None Immunologic History: Reports: None Oncologic (Cancer) History: Reports: Other (See Below) Other Oncologic History: fibroid Dermatologic History: Reports: None - Infectious Disease History Infectious Disease History: Reports: None - Past Surgical History Head Surgeries/Procedures: Reports: None Female Surgical History: Reports: Section Social & Family History - Family History Family Medical History: Noncontributory - Tobacco Use Smoking Status *Q: Never Smoker Second Hand Smoke Exposure: No - Caffeine Use Caffeine Use: Reports: Coffee - Recreational Drug Use Recreational Drug Use: No Drug Use in Last 12 Months: No ED ROS GENERAL - Review of Systems Review Of Systems: ROS reveals no pertinent complaints other than HPI. ED EXAM, GENERAL - Physical Exam Exam: See Below (See dictation) Course - Vital Signs Last Recorded V/S: Last Vital Signs Temp 36.4 C 07/09/17 09:32 Pulse 92 07/09/17 09:32 Resp 20 07/09/17 09:32 BP 140/116 H 07/09/17 09:32 Pulse Ox 98 07/09/17 09:32 - Orders/Labs/Meds Orders: Active Orders 24 hr Category Date Time Status EKG Documentation Completion [RC] STAT Care 07/09/17 09:51 Active Abdomen Pelvis w Cont [CT] Stat Exams 07/09/17 09:52 Taken Sodium Chloride 0.9% [Saline Flush] Med 07/09/17 09:53 Active 10 ml FLUSH ASDIRECTED PRN Sodium Chloride 0.9% [Saline Flush] Med 07/09/17 09:53 Active 2.5 ml FLUSH ASDIRECTED PRN Saline Lock Insert [OM.PC] Stat Oth 07/09/17 09:51 Ordered Medication Orders Sodium Chloride (Saline Flush) 10 ml FLUSH ASDIRECTED PRN PRN Reason: Keep Vein Open Last Admin: 07/09/17 10:20 Dose: 10 ml Sodium Chloride (Saline Flush) 2.5 ml FLUSH ASDIRECTED PRN PRN Reason: Keep Vein Open Last Admin: 07/09/17 10:20 Dose: 2.5 ml Labs: Laboratory Tests 07/09/17 07/09/17 07/09/17 Range/Units 10:10 10:10 10:10 WBC 13.91 H (4.0-11.0) K/uL RBC 4.25 L (4.30-5.90) M/uL Hgb 12.0 (12.0-16.0) g/dL Hct 36.6 (36.0-46.0) % MCV 86.1 (80.0-98.0) fL MCH 28.2 (27.0-32.0) pg MCHC 32.8 (31.0-37.0) g/dL RDW Std Deviation 53.9 (28.0-62.0) fl RDW Coeff of Jarvis 17 H (11.0-15.0) % Plt Count 286 (150-400) K/uL MPV 10.70 (7.40-12.00) fL Neut % (Auto) 61.6 (48.0-80.0) % Lymph % (Auto) 28.2 (16.0-40.0) % Def[place] % (Auto) 9.3 (0.0-15.0) % Eos % (Auto) 0.8 (0.0-7.0) % Baso % (Auto) 0.1 (0.0-1.5) % Neut # (Auto) 8.6 H (1.4-5.7) K/uL Lymph # (Auto) 3.9 H (0.6-2.4) K/uL Defiance # (Auto) 1.3 H (0.0-0.8) K/uL Eos # (Auto) 0.1 (0.0-0.7) K/uL Baso # (Auto) 0.0 (0.0-0.1) K/uL Nucleated RBC % 0.0 /100WBC Nucleated RBCs # 0 K/uL Sodium 139 (136-146) mmol/L Potassium 3.7 (3.5-5.1) mmol/L Chloride 107 (98-110) mmol/L Carbon Dioxide 24 (21-31) mmol/L BUN 15 (6.0-23.0) mg/dL Creatinine 0.8 (0.6-1.5) mg/dL Est Cr Clr Drug Dosing 79.11 mL/min Estimated GFR (MDRD) > 60.0 ml/min Glucose 98 (60-110) mg/dL Calcium 8.9 (8.8-10.8) mg/dL Total Bilirubin 0.3 (0.1-1.5) mg/dL AST 12 (5-40) IU/L ALT 13 (8-54) IU/L Alkaline Phosphatase 84 (40-150) Total Protein 7.0 (6.0-8.0) g/dL Albumin 3.6 (3.5-5.0) g/dL Globulin 3.4 (2.0-3.5) g/dL Albumin/Globulin Ratio 1.1 L (1.3-2.8) Amylase 35 (10-90) U/L Lipase 21 (7-80) U/L HCG, Qual NEGATIVE (NEG) Urine Color Urine Appearance Urine pH (5.0-8.0) Ur Specific Byron (1.001-1.035) Urine Protein (NEGATIVE) mg/dL Urine Glucose (UA) (NEGATIVE) mg/dL Urine Ketones (NEGATIVE) mg/dL Urine Occult Blood (NEGATIVE) Urine Nitrite (NEGATIVE) Urine Bilirubin (NEGATIVE) Urine Urobilinogen (<2.0) EU/dL Ur Leukocyte Esterase (NEGATIVE) Urine RBC (0-2/HPF) Urine WBC (0-5/HPF) Ur Epithelial Cells (NONE-FEW) Amorphous Sediment (NEGATIVE) Urine Bacteria (NEGATIVE) 07/09/17 Range/Units 11:17 WBC (4.0-11.0) K/uL RBC (4.30-5.90) M/uL Hgb (12.0-16.0) g/dL Hct (36.0-46.0) % MCV (80.0-98.0) fL MCH (27.0-32.0) pg MCHC (31.0-37.0) g/dL RDW Std Deviation (28.0-62.0) fl RDW Coeff of Jarvis (11.0-15.0) % Plt Count (150-400) K/uL MPV (7.40-12.00) fL Neut % (Auto) (48.0-80.0) % Lymph % (Auto) (16.0-40.0) % Defiance % (Auto) (0.0-15.0) % Eos % (Auto) (0.0-7.0) % Baso % (Auto) (0.0-1.5) % Neut # (Auto) (1.4-5.7) K/uL Lymph # (Auto) (0.6-2.4) K/uL Defiance # (Auto) (0.0-0.8) K/uL Eos # (Auto) (0.0-0.7) K/uL Baso # (Auto) (0.0-0.1) K/uL Nucleated RBC % /100WBC Nucleated RBCs # K/uL Sodium (136-146) mmol/L Potassium (3.5-5.1) mmol/L Chloride (98-110) mmol/L Carbon Dioxide (21-31) mmol/L BUN (6.0-23.0) mg/dL Creatinine (0.6-1.5) mg/dL Est Cr Clr Drug Dosing mL/min Estimated GFR (MDRD) ml/min Glucose (60-110) mg/dL Calcium (8.8-10.8) mg/dL Total Bilirubin (0.1-1.5) mg/dL AST (5-40) IU/L ALT (8-54) IU/L Alkaline Phosphatase (40-150) Total Protein (6.0-8.0) g/dL Albumin (3.5-5.0) g/dL Globulin (2.0-3.5) g/dL Albumin/Globulin Ratio (1.3-2.8) Amylase (10-90) U/L Lipase (7-80) U/L HCG, Qual (NEG) Urine Color YELLOW Urine Appearance CLEAR Urine pH 6.5 (5.0-8.0) Ur Specific Byron 1.010 (1.001-1.035) Urine Protein NEGATIVE (NEGATIVE) mg/dL Urine Glucose (UA) NEGATIVE (NEGATIVE) mg/dL Urine Ketones NEGATIVE (NEGATIVE) mg/dL Urine Occult Blood NEGATIVE (NEGATIVE) Urine Nitrite NEGATIVE (NEGATIVE) Urine Bilirubin NEGATIVE (NEGATIVE) Urine Urobilinogen 0.2 (<2.0) EU/dL Ur Leukocyte Esterase NEGATIVE (NEGATIVE) Urine RBC NONE SEEN (0-2/HPF) Urine WBC 0-1 (0-5/HPF) Ur Epithelial Cells MODERATE (NONE-FEW) Amorphous Sediment FEW (NEGATIVE) Urine Bacteria FEW (NEGATIVE) Meds: Medications Generic Name Dose Route Start Last Admin Trade Name Freq PRN Reason Stop Dose Admin Sodium Chloride 10 ml 07/09/17 09:53 07/09/17 10:20 Saline Flush FLUSH 10 ml ASDIRECTED PRN Administration Keep Vein Open Sodium Chloride 2.5 ml 07/09/17 09:53 07/09/17 10:20 Saline Flush FLUSH 2.5 ml ASDIRECTED PRN Administration Keep Vein Open Discontinued Medications Generic Name Dose Route Start Last Admin Trade Name Freq PRN Reason Stop Dose Admin Al Hydroxide/Mg Hydroxide 15 0 ml 07/09/17 09:53 07/09/17 10:24 ml/ Metoclopramide HCl 5 mg/ PO 07/09/17 09:54 1 each Lidocaine HCl 5 ml ONETIME ONE Administration Sodium Chloride 1,000 mls @ 999 mls/hr 07/09/17 09:52 07/09/17 10:18 Normal Saline IV 07/09/17 10:52 300 mls/hr STAT ONE Administration Morphine Sulfate 2 mg 07/09/17 09:52 07/09/17 10:32 Morphine IVPUSH 07/09/17 09:53 2 mg ONETIME ONE Administration Pantoprazole Sodium 40 mg 07/09/17 09:52 07/09/17 10:18 Protonix Iv IVPUSH 07/09/17 09:53 40 mg .BOLUS ONE Administration Departure - Departure Time of Disposition: 11:50 Disposition: Home, Self-Care 01 Condition: Good Clinical Impression: Abdominal pain Qualifiers: Abdominal location: epigastric Qualified Code(s): R10.13 - Epigastric pain - Discharge Information Referrals: PCP,None [Primary Care Provider] - Forms: ED Department Discharge Additional Instructions: The following information is given to patients seen in the emergency department who are being discharged to home. This information is to outline your options for follow-up care. We provide all patients seen in our emergency department with a follow-up referral. The need for follow-up, as well as the timing and circumstances, are variable depending upon the specifics of your emergency department visit. If you don't have a primary care physician on staff, we will provide you with a referral. We always advise you to contact your personal physician following an emergency department visit to inform them of the circumstance of the visit and for follow-up with them and/or the need for any referrals to a consulting specialist. The emergency department will also refer you to a specialist when appropriate. This referral assures that you have the opportunity for followup care with a specialist. All of these measure are taken in an effort to provide you with optimal care, which includes your followup. Under all circumstances we always encourage you to contact your private physician who remains a resource for coordinating your care. When calling for followup care, please make the office aware that this follow-up is from your recent emergency room visit. If for any reason you are refused follow-up, please contact the [facility] emergency department at and ask to speak to the emergency department charge nurse. [facility] Primary care- [place] [id number] Please continue the medications that you're currently taking, prednisone and Benadryl, for your itching until they're finished. Please add the new medications were prescribed today, Prevacid and tramadol, and also call the clinic Tuesday morning at 8 AM for a expedited follow-up. Please return to the ER as needed and as discussed. Please only eat low-fat foods no rich foods in elvis productsE foods until you're followed up. Please also discuss with her clinic physician and your blood pressure and have close monitoring of that. Try to avoid sodium based products and extra sodium in your diet. - My Orders Last 24 Hours: My Active Orders 07/09/17 09:51 EKG Documentation Completion [RC] STAT Saline Lock Insert [OM.PC] Stat 07/09/17 09:52 Abdomen Pelvis w Cont [CT] Stat 07/09/17 09:53 Sodium Chloride 0.9% [Saline Flush] 10 ml FLUSH ASDIRECTED PRN Sodium Chloride 0.9% [Saline Flush] 2.5 ml FLUSH ASDIRECTED PRN - Assessment/Plan Last 24 Hours: My Active Orders 07/09/17 09:51 EKG Documentation Completion [RC] STAT Saline Lock Insert [OM.PC] Stat 07/09/17 09:52 Abdomen Pelvis w Cont [CT] Stat 07/09/17 09:53 Sodium Chloride 0.9% [Saline Flush] 10 ml FLUSH ASDIRECTED PRN Sodium Chloride 0.9% [Saline Flush] 2.5 ml FLUSH ASDIRECTED PRN
[2017-07-09 10:43] LABS: CHLORIDE,CL 107 mmol/L (98-110); SODIUM,NA 139 mmol/L (136-146)
[2017-07-09] MEDS ORDERED: Iopamidol 755 MG/ML 500 ML Multipack Bottle IVPUSH STA (11:50)
[2017-07-09 12:58] VITALS: BP 126/73
--- NOTE | 2017-07-11 13:39 | CT ---
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 Site : [id number] Study: CT Abdomen/Pelvis [id number]/[id number] 11:13:14 AM Ordering Physician: Carmen Gardiner Final Report: HISTORY: Abdominal pain. TECHNIQUE: Intravenous contrast enhanced CT of the abdomen and pelvis. COMPARISON: No prior CT available for comparison at time of interpretation. FINDINGS: There is minimal focal fatty infiltration within the left hepatic lobe adjacent to the falciform ligament. No focal hepatic mass. No biliary ductal dilatation. Gallbladder does not appear overly distended. Spleen size within limits. Adrenal glands are normal. There is no focal pancreatic abnormality or acute peripancreatic inflammatory change. Symmetric nephrograms. No renal mass or hydronephrosis. No perinephric fluid collection. Urinary bladder is not well evaluated by CT. - No small bowel obstruction. No appendicitis. No diverticulitis or definite colitis. Small amount of pelvic free fluid within the right lower quadrant. No localized collection. Enlargement of the uterus. No abdominal aortic aneurysm. The mesenteric and renal vasculature are patent. - Mild degenerative changes of the hips. Degenerative changes of the sacroiliac joints. Degenerative changes of the lumbar spine. No acute fractures. - Mild ground-glass opacity within the lower lung zones likely relates to atelectasis. IMPRESSION: 1. No appendicitis, bowel obstruction or diverticulitis. 2. Small amount of right lower quadrant pelvic free fluid. No localized collection. 3. Enlarged uterus. Dictated by Juan C Morales MD @ 07/09/2017 11:32:06 AM Dictated by: Juan C Morales MD @ 07/09/2017 11:32:12 (Electronic Signature) Report Signed by Proxy. PHILL
== END 2017-07-09 12:54 | disposition home or self-care (01) ==
LOC: MW.ED 09:32
DX: R10.13 Epigastric pain (principal); I10 Essential (primary) hypertension; E66.9 Obesity, unspecified
CPT/HCPCS: 36415; 74177; 80053; 81001; 82150; 83690; 84703; 85025; 93005; 96361; 96374; 96375; 99285; A9270; C9113; J2270; J7040; Q9967; 99283

== ENCOUNTER 2018-02-02 07:55 | Day surgery (SDC) | payer BC, OTHER, SELFPAY ==
[~2018-02-02 07:55] MED LIST changes: +ceFAZolin 2 GM in Premix Bag 1 BAG IV ONE
[2018-02-02] MEDS: Lactated Ringers 1,000 ML IV SCH ×2 (08:15→18:31)
[2018-02-02] MEDS ORDERED: Propofol 200 MG/20 ML SDV ONE (08:18)
[2018-02-02] MEDS ORDERED: Midazolam 1 MG/ML 2 ML SDV ONE (08:18)
[2018-02-02] MEDS ORDERED: fentaNYL 250 MCG/5 ML SDV ONE (08:18)
[2018-02-02] MEDS ORDERED: Lidocaine 2% 5 ML SDV ONE (08:18)
[2018-02-02] MEDS ORDERED: Rocuronium 10 MG/ML 10 ML Syringe ONE (08:18)
[2018-02-02] MEDS ORDERED: Ondansetron 4 MG/2 ML SDV ONE (08:18)
--- NOTE | 2018-02-02 08:20 | PCM.PREANE ---
Preanesthetic Assessment - Anesthesia/Transfusion/Family Hx Anesthesia History: Prior Anesthesia Without Reaction (c section x 2, D&C,) Family History of Anesthesia Reaction: No Transfusion History: No Prior Transfusion(s) Intubation History: Unknown - Review of Systems General: No Symptoms Pulmonary: No Symptoms Cardiovascular: No Symptoms Gastrointestinal: No Symptoms Neurological: No Symptoms Other: Reports: None - Physical Assessment NPO Status Date: 02/01/18 Height: 1.63 m Weight: 98.883 kg ASA Class: 2 Mental Status: Alert & Oriented x3 Airway Class: Mallampati = 1 Dentition: Reports: Normal Dentition ROM/Head Extension: Full Lungs: Clear to Auscultation, Normal Respiratory Effort Cardiovascular: Regular Rate, Regular Rhythm - Lab Values: Laboratory Last Values WBC 10.25 K/uL (4.0-11.0) 02/01/18 09:32 RBC 4.41 M/uL (4.30-5.90) 02/01/18 09:32 Hgb 11.6 g/dL (12.0-16.0) L 02/01/18 09:32 Hct 35.9 % (36.0-46.0) L 02/01/18 09:32 MCV 81.4 fL (80.0-98.0) 02/01/18 09:32 MCH 26.3 pg (27.0-32.0) L 02/01/18 09:32 MCHC 32.3 g/dL (31.0-37.0) 02/01/18 09:32 RDW Std Deviation 48.2 fl (28.0-62.0) 02/01/18 09:32 RDW Coeff of Jarvis 16 % (11.0-15.0) H 02/01/18 09:32 Plt Count 401 K/uL (150-400) H 02/01/18 09:32 MPV 10.60 fL (7.40-12.00) 02/01/18 09:32 Nucleated RBC % 0.0 /100WBC 02/01/18 09:32 Nucleated RBCs # 0 K/uL 02/01/18 09:32 HCG, Qual NEGATIVE (NEG) 02/01/18 09:32 Blood Type O POSITIVE 02/01/18 09:32 Antibody Screen NEGATIVE 02/01/18 09:32 - Allergies Allergies/Adverse Reactions: Allergies Allergy/AdvReac Type Severity Reaction Status Date / Time No Known Allergies Allergy Verified 01/31/18 08:31 - Anesthesia Plan Pre-Op Medication Ordered: None (PMH: obesity, GERD) - Acknowledgements Anesthesia Type Planned: General Anesthesia Pt an Appropriate Candidate for the Planned Anesthesia: Yes Alternatives and Risks of Anesthesia Discussed w Pt/Guardian: Yes Pt/Guardian Understands and Agrees with Anesthesia Plan: Yes PreAnesthesia Questionnaire - Past Health History Medical/Surgical History: Denies Medical/Surgical History HEENT History: Reports: None Cardiovascular History: Reports: Other (See Below) Other Cardiovascular History: "low blood pressure" Respiratory History: Reports: None Gastrointestinal History: Reports: None Genitourinary History: Reports: None 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: , Other (See Below) Other OB/BYN History: miscarriage Musculoskeletal History: Reports: Back Pain, Chronic Neurological History: Reports: None Psychiatric History: Reports: None Endocrine/Metabolic History: Reports: Obesity/BMI 30+ Hematologic History: Reports: None Immunologic History: Reports: None Oncologic (Cancer) History: Reports: None Dermatologic History: Reports: None - Infectious Disease History Infectious Disease History: Reports: None - Past Surgical History Head Surgeries/Procedures: Reports: None Female Surgical History: Reports: Section, D&C - SUBSTANCE USE Smoking Status *Q: Never Smoker Second Hand Smoke Exposure: No Recreational Drug Use History: No - HOME MEDS Home Medications: Home Meds . [No Known Home Meds] 01/31/18 [History] - CURRENT (IN HOUSE) MEDS Current Meds: Current Medications Lactated Ringer's (Ringers, Lactated) 1,000 mls @ 125 mls/hr IV ASDIRECTED KARLI Sodium Chloride (Saline Flush) 10 ml FLUSH ASDIRECTED PRN PRN Reason: Keep Vein Open Sodium Chloride (Saline Flush) 2.5 ml FLUSH ASDIRECTED PRN PRN Reason: Keep Vein Open Discontinued Medications Cefazolin Sodium/Dextrose 2 gm (/ Premix) 50 mls @ 100 mls/hr IV ONETIME ONE Stop: 02/01/18 08:52
[2018-02-02] MEDS ORDERED: ceFAZolin/Dextrose,Iso-Osmotic 2 GM/50 ML Duplex Bag IV ONE (08:29)
[2018-02-02] MEDS ORDERED: Fluorescein 5 ML Vial ONE (08:32)
[2018-02-02] MEDS ORDERED: Succinylcholine 200 MG/10 ML MDV ONE (09:27)
[2018-02-02] MEDS ORDERED: HYDROmorphone 2 MG/ML SDV ONE ×2 (09:28→11:46)
[2018-02-02] MEDS ORDERED: Scopolamine 1.5 MG Transdermal Patch ONE (09:56)
[2018-02-02] MEDS ORDERED: diphenhydrAMINE 50 MG/ML SDV ONE (09:56)
[2018-02-02] MEDS ORDERED: Dexamethasone 4 MG/ML 5 ML MDV ONE (09:56)
[2018-02-02] MEDS ORDERED: Ketorolac 30 MG/ML SDV ONE (11:34)
[2018-02-02] MEDS ORDERED: Octyl 2-Cyanoacrylate 1 Tube ONE (11:38)
[2018-02-02] MEDS ORDERED: Ketorolac 30 MG/ML SDV IVPUSH ONE (11:39)
[2018-02-02] MEDS ORDERED: Ondansetron 4 MG/2 ML SDV IVPUSH PRN (11:39)
[2018-02-02] MEDS ORDERED: Ketorolac 30 MG/ML SDV IVPUSH PRN (11:39)
[2018-02-02] MEDS ORDERED: Acetaminophen/oxyCODONE 325-5 MG Tab PO PRN (11:39)
[2018-02-02] MEDS ORDERED: Promethazine 25 MG/ML SDV IM PRN (11:39)
--- NOTE | 2018-02-02 11:45 | PCM.OPNOTE ---
- General Post-Op/Procedure Note Date of Surgery/Procedure: 02/02/18 Operative Procedure(s): Dignostic Laparascopy ,ABHI and bilateral Salpangectomy. Pre Op Diagnosis: bleeding, Fibroid Uterus. Post-Op Diagnosis: Same Primary Surgeon: Connor Bo Mechanical Engineering Intern: Eleanor Burkett EBL in mLs: 300 Complications: None Condition: Good Free Text/Narrative:: Intake & Output 02/01/18 02/02/18 02/02/18 22:59 06:59 14:59 Output Total 500 Balance -500
[2018-02-02] MEDS: fentaNYL 100 MCG/2 ML SDV IVPUSH PRN ×3 (12:26→13:02)
--- NOTE | 2018-02-02 13:02 | PCM.POSTAN ---
POST ANESTHESIA ASSESSMENT - MENTAL STATUS Mental Status: Alert, Oriented - RESPIRATORY Respiratory Status: Respiratory Rate WNL, Airway Patent, O2 Saturation Stable - CARDIOVASCULAR CV Status: Pulse Rate WNL, Blood Pressure Stable - GASTROINTESTINAL GI Status: No Symptoms - POST OP HYDRATION Hydration Status: Adequate & Stable
[2018-02-02] MEDS: Morphine 4 MG/ML Syringe IVPUSH PRN ×2 (13:39→17:29)
[2018-02-02] MEDS: Acetaminophen/oxyCODONE 325-5 MG Tab PO PRN ×2 (13:45→23:58)
[2018-02-03 06:58] LABS: CHLORIDE,CL 105 mmol/L (98-107); SODIUM,NA 138 mmol/L (136-145)
--- NOTE | 2018-02-03 08:36 | OR ---
SURGEON: Connor Bo MD DATE OF PROCEDURE: 02/02/2018 PREOPERATIVE DIAGNOSES: Menometrorrhagia, anemia, and fibroid uterus. POSTOPERATIVE DIAGNOSES: Menometrorrhagia, anemia, and fibroid uterus. The fibroid was about 18 weeks size. OPERATION PERFORMED: Diagnostic laparoscopy followed by total abdominal hysterectomy and bilateral salpingectomy, preserving both ovaries. EMPLOYEE COUNSELOR: ROWENA Cruz. ANESTHESIA: General endotracheal intubation, Rebecca Rincon and Dr. Ambrocio. ESTIMATED BLOOD LOSS: 300 mL. COMPLICATION: None. FINDING: Uterus is about 18 weeks size with multiple fibroids and pelvic adhesions and adhesions to the anterior abdominal wall. It is felt, after I did a diagnostic laparoscopy, that it is not safe to do the procedure laparoscopically. INDICATION FOR SURGERY: [place] refer to the admit note. PROCEDURE IN DETAIL: The patient was brought to the OR, properly identified, and after adequate level of general anesthesia, the patient was placed in lithotomy position with access to the abdomen and the vagina. The patient was prepped and draped in the sterile fashion as usual, and then the Colpotomizer retractor was placed in a place for manipulation and Blackwell catheter was placed in the bladder for drainage. Then, stab wound done beneath the umbilicus. The Veress needle was placed in the peritoneal cavity and that cavity was insufflated to 6 L carbon dioxide. The skin incision was enlarged to accommodate the trocar and the laparoscopic 5 mm scope placed through it. Diagnostic laparoscopy was performed at this time. The fibroid was about 18 weeks size; however, there was adhesion between the omentum and the anterior part of the fibroid for a parasitic additional blood supply to the fibroid. It was felt at this time it was not safe to proceed laparoscopically, we already obtained consent, and I told the patient that most likely we were going to do it abdominally, so we proceeded with the abdominal route. The laparoscopic instrument was removed, and then low transverse skin incision was done. Rosalba's fascia and rectus fascia were opened in direction of the incision. Maylard incision was performed by transecting the rectus muscle at the direction of the incision. The inferior epigastric vessel was identified on both sides, transected, and suture-ligated, and the peritoneal cavity was entered. We started the operation by identifying the landmark of the anatomy in the pelvis and then lysing the adhesion and freeing the omentum from its attachment to the anterior part and the fundus of the uterus. Once we did that, then the intestines were packed away from the operative field, and round ligament was identified from both sides, clamped with a curved Lyn, suture-ligated with 2-0 Vicryl pop-off, and transected; and then the anterior leaf of the broad ligament was dissected upward and downward. The superior pedicle was clamped with a curved Zeppelin. The tubes were included with the specimen. The ovaries were preserved on both sides and the superior pedicle was secured and tied with 2-0 Vicryl on both sides twice. Then, the anterior leaf of the broad ligament was dissected downward medially, pushing the bladder completely away from the operative field. Once this was done, then skeletonization of the uterine vessel was done. Then, the vessel was clamped with a curved Zeppelin, transected, and suture-ligated with 2-0 Vicryl pop-off. At this time to make room, the uterus was amputated and removed; and then we proceeded to dissect the cardinal ligament up from both sides, clamped with a curved Le[place], transected 2-0 Vicryl pop-off, and held for further identification. Then, the bladder was dissected completely away from the operative field. The anterior vaginal wall was entered anteriorly, and Lizet scissor was used to excise the cervix in a circular manner, detaching from the vagina. Once this was done, then the vaginal cuff was closed with 2-0 Vicryl interrupted [id number] suture. Inspection of the operative field showed there was an area of oozing from the peritoneum, that was picked and suture-ligated, and the bleeding stopped. Then, thorough irrigation of the pelvis showed no bleeding, no oozing. Then, the lap pack was removed from the abdomen and then we proceeded to closed the abdomen in layer, first the peritoneum with 3-0 Vicryl, and #1 PDS double strand was used to close the fascia continuous. The Rosalba's fascia was closed with 3-0 Vicryl continuous. The skin was closed with 3-0 Vicryl on a Jp needle in a subcuticular fashion and Dermabond. Instrument and sponge counts were correct. The patient tolerated the procedure well and went to recovery room in stable general condition. YODIT / BURAK /[id number]
--- NOTE | 2018-02-03 09:59 | PCM.SURGPN ---
- General Info Date of Service: 02/03/18 POD#: 1 Functional Status: Reports: Pain Controlled - Review of Systems General: Reports: No Symptoms HEENT: Reports: No Symptoms Pulmonary: Reports: No Symptoms Cardiovascular: Reports: No Symptoms Gastrointestinal: Reports: No Symptoms Genitourinary: Reports: No Symptoms Musculoskeletal: Reports: No Symptoms Skin: Reports: No Symptoms Neurological: Reports: No Symptoms Psychiatric: Reports: No Symptoms - Patient Data Vitals - Most Recent: Last Vital Signs Temp 37.1 C 02/03/18 04:56 Pulse 64 02/03/18 04:56 Resp 20 02/03/18 04:56 BP 142/88 H 02/03/18 04:56 Pulse Ox 99 02/03/18 04:56 Weight - Most Recent: 98.883 kg I&O - Last 24 Hours: Intake & Output 02/02/18 02/03/18 02/03/18 22:59 06:59 14:59 Intake Total 500 Output Total 1550 Balance -1050 Lab Results Last 24 Hrs: Laboratory Results - last 24 hr 02/03/18 02/03/18 Range/Units 06:14 06:14 WBC 12.21 H (4.0-11.0) K/uL RBC 3.46 L (4.30-5.90) M/uL Hgb 9.0 L (12.0-16.0) g/dL Hct 27.8 L (36.0-46.0) % MCV 80.3 (80.0-98.0) fL MCH 26.0 L (27.0-32.0) pg MCHC 32.4 (31.0-37.0) g/dL RDW Std Deviation 47.3 (28.0-62.0) fl RDW Coeff of Jarvis 16 H (11.0-15.0) % Plt Count 325 (150-400) K/uL MPV 10.20 (7.40-12.00) fL Neut % (Auto) 71.6 (48.0-80.0) % Lymph % (Auto) 16.3 (16.0-40.0) % [place] % (Auto) 11.8 (0.0-15.0) % Eos % (Auto) 0.2 (0.0-7.0) % Baso % (Auto) 0.1 (0.0-1.5) % Neut # (Auto) 8.8 H (1.4-5.7) K/uL Lymph # (Auto) 2.0 (0.6-2.4) K/uL [place] # (Auto) 1.4 H (0.0-0.8) K/uL Eos # (Auto) 0.0 (0.0-0.7) K/uL Baso # (Auto) 0.0 (0.0-0.1) K/uL Nucleated RBC % 0.0 /100WBC Nucleated RBCs # 0 K/uL Sodium 138 (136-145) mmol/L Potassium 3.8 (3.5-5.1) mmol/L Chloride 105 (98-107) mmol/L Carbon Dioxide 26.4 (21.0-32.0) mmol/L BUN 10 (7.0-18.0) mg/dL Creatinine 0.9 (0.6-1.0) mg/dL Est Cr Clr Drug Dosing 70.32 mL/min Estimated GFR (MDRD) > 60.0 ml/min Glucose 128 H (74-106) mg/dL Calcium 8.5 (8.5-10.1) mg/dL Med Orders - Current: Current Medications Fentanyl (Sublimaze) 50 mcg IVPUSH .Q5MIN PRN PRN Reason: Pain Last Admin: 02/02/18 13:02 Dose: 50 mcg Lactated Ringer's (Ringers, Lactated) 1,000 mls @ 125 mls/hr IV ASDIRECTED [facility] Last Admin: 02/02/18 18:31 Dose: 125 mls/hr Ketorolac Tromethamine (Toradol) 30 mg IVPUSH Q6H PRN PRN Reason: Pain (severe 7-10) Stop: 02/07/18 11:40 Last Admin: 02/03/18 04:25 Dose: 30 mg Morphine Sulfate (Morphine) 4 mg IVPUSH Q2H PRN PRN Reason: Pain (severe 7-10) Last Admin: 02/02/18 17:29 Dose: 4 mg Ondansetron HCl (Zofran) 4 mg IVPUSH Q6H PRN PRN Reason: Nausea/Vomiting Oxycodone/Acetaminophen (Percocet 325-5 Mg) 1 tab PO Q4H PRN PRN Reason: Pain (moderate 4-6) Oxycodone/Acetaminophen (Percocet 325-5 Mg) 2 tab PO Q4H PRN PRN Reason: Pain (moderate 4-6) Last Admin: 02/02/18 23:58 Dose: 2 tab Promethazine HCl (Phenergan) 25 mg IM Q6H PRN PRN Reason: Nausea/Vomiting Sodium Chloride (Saline Flush) 10 ml FLUSH ASDIRECTED PRN PRN Reason: Keep Vein Open Sodium Chloride (Saline Flush) 2.5 ml FLUSH ASDIRECTED PRN PRN Reason: Keep Vein Open Discontinued Medications Cefazolin Sodium/Dextrose (Ancef) Confirm Administered Dose 2 gm IV .STK-MED ONE Stop: 02/02/18 08:30 Dexamethasone (Dexamethasone) Confirm Administered Dose 20 mg .ROUTE .STK-MED ONE Stop: 02/02/18 09:57 Diphenhydramine HCl (Benadryl) Confirm Administered Dose 50 mg .ROUTE .STK-MED ONE Stop: 02/02/18 09:57 Fentanyl (Sublimaze) Confirm Administered Dose 250 mcg .ROUTE .STK-MED ONE Stop: 02/02/18 08:19 Fluorescein Sodium (Ak-Fluor) Confirm Administered Dose 5 ml .ROUTE .STK-MED ONE Stop: 02/02/18 08:33 Hydromorphone HCl (Dilaudid) Confirm Administered Dose 2 mg .ROUTE .STK-MED ONE Stop: 02/02/18 09:29 Hydromorphone HCl (Dilaudid) Confirm Administered Dose 2 mg .ROUTE .STK-MED ONE Stop: 02/02/18 11:47 Cefazolin Sodium/Dextrose 2 gm (/ Premix) 50 mls @ 100 mls/hr IV ONETIME ONE Stop: 02/01/18 08:52 Last Admin: 02/02/18 13:33 Dose: Not Given Ketorolac Tromethamine (Toradol) Confirm Administered Dose 30 mg .ROUTE .STK- MED ONE Stop: 02/02/18 11:35 Ketorolac Tromethamine (Toradol) 30 mg IVPUSH ONETIME ONE Stop: 02/02/18 11:40 Last Admin: 02/02/18 13:33 Dose: Not Given Lidocaine (Xylocaine-Mpf 2%) Confirm Administered Dose 5 ml .ROUTE .STK-MED ONE Stop: 02/02/18 08:19 Midazolam HCl (Versed 1 Mg/Ml) Confirm Administered Dose 2 mg .ROUTE .STK-MED ONE Stop: 02/02/18 08:19 Octyl Cyanoacrylate (Dermabond Advance) Confirm Administered Dose 1 applic .ROUTE .STK-MED ONE Stop: 02/02/18 11:39 Ondansetron HCl (Zofran) Confirm Administered Dose 4 mg .ROUTE .STK-MED ONE Stop: 02/02/18 08:19 Propofol (Diprivan 20 Ml) Confirm Administered Dose 200 mg .ROUTE .STK-MED ONE Stop: 02/02/18 08:19 Rocuronium [place] (Zemuron) Confirm Administered Dose 100 mg .ROUTE .STK-MED ONE Stop: 02/02/18 08:19 Scopolamine (Transderm-Scop) Confirm Administered Dose 1.5 mg .ROUTE .STK-MED ONE Stop: 02/02/18 09:57 Succinylcholine Chloride (Quelicin) Confirm Administered Dose 200 mg .ROUTE .STK -MED ONE Stop: 02/02/18 09:28 - Exam Wound/Incisions: Healing Well General: Alert, Oriented HEENT: Pupils Equal Neck: Supple Lungs: Clear to Auscultation, Normal Respiratory Effort Cardiovascular: Regular Rate, Regular Rhythm GI/Abdominal Exam: Normal Bowel Sounds, Soft, Non-Tender, No Organomegaly, No Distention, No Abnormal Bruit, No Mass, Pelvis Stable Extremities: Normal Inspection, Normal Range of Motion, Non-Tender, No Pedal Edema, Normal Capillary Refill Skin: Warm, Dry, Intact Neurological: No New Focal Deficit Psy/Mental Status: Alert, Normal Affect, Normal Mood - Problem List Review Problem List Initiated/Reviewed/Updated: Yes - My Orders Last 24 Hours: Active Orders 24 hr Category Date Time Status Patient Status [ADT] Routine ADT 02/02/18 11:40 Active Notify Provider Vital Signs [RC] ASDIRECTED Care 02/02/18 11:40 Active Overnight Pulse Oximetry [RC] Click to Edit Care 02/02/18 13:02 Active Oxygen Therapy [RC] ASDIRECTED Care 02/02/18 11:40 Active RT Incentive Spirometry [RC] Q2HWA Care 02/02/18 11:40 Active Up With Assistance [RC] PER UNIT ROUTINE Care 02/02/18 11:40 Active Up ad Alba [RC] PER UNIT ROUTINE Care 02/02/18 11:40 Active Urinary Catheter Removal [RC] Per Unit Routine Care 02/02/18 11:40 Active Vital Signs [RC] PER UNIT ROUTINE Care 02/02/18 11:40 Active Regular Diet [DIET] Diet 02/02/18 Dinner Active Acetaminophen/oxyCODONE [Percocet 325-5 MG] Med 02/02/18 11:39 Active 1 tab PO Q4H PRN Acetaminophen/oxyCODONE [Percocet 325-5 MG] Med 02/02/18 11:39 Active 2 tab PO Q4H PRN Ketorolac [Toradol] Med 02/02/18 11:39 Active 30 mg IVPUSH Q6H PRN Morphine Med 02/02/18 11:39 Active 4 mg IVPUSH Q2H PRN Ondansetron [Zofran] Med 02/02/18 11:39 Active 4 mg IVPUSH Q6H PRN Promethazine [Phenergan] Med 02/02/18 11:39 Active 25 mg IM Q6H PRN fentaNYL [Sublimaze] Med 02/02/18 10:12 Active 50 mcg IVPUSH .Q5MIN PRN Peripheral IV Discontinue [OM.PC] Routine Oth 02/02/18 11:40 Ordered Pulse Oximetry Continuous Monitoring [OM.PC] Routine Oth 02/02/18 13:02 Ordered Sequential Compression Device [OM.PC] Per Unit Routine Oth 02/02/18 11:40 Ordered Resuscitation Status Routine Resus Stat 02/02/18 11:39 Ordered Medication Orders Fentanyl (Sublimaze) 50 mcg IVPUSH .Q5MIN PRN PRN Reason: Pain Last Admin: 02/02/18 13:02 Dose: 50 mcg Admin: 02/02/18 12:38 Dose: 50 mcg Admin: 02/02/18 12:26 Dose: 50 mcg Lactated Ringer's (Ringers, Lactated) 1,000 mls @ 125 mls/hr IV ASDIRECTED KARLI Last Admin: 02/02/18 18:31 Dose: 125 mls/hr Infusion: 02/02/18 16:15 Dose: 125 mls/hr Admin: 02/02/18 08:15 Dose: 125 mls/hr Ketorolac Tromethamine (Toradol) 30 mg IVPUSH Q6H PRN PRN Reason: Pain (severe 7-10) Stop: 02/07/18 11:40 Last Admin: 02/03/18 04:25 Dose: 30 mg Morphine Sulfate (Morphine) 4 mg IVPUSH Q2H PRN PRN Reason: Pain (severe 7-10) Last Admin: 02/02/18 17:29 Dose: 4 mg Ondansetron HCl (Zofran) 4 mg IVPUSH Q6H PRN PRN Reason: Nausea/Vomiting Oxycodone/Acetaminophen (Percocet 325-5 Mg) 1 tab PO Q4H PRN PRN Reason: Pain (moderate 4-6) Oxycodone/Acetaminophen (Percocet 325-5 Mg) 2 tab PO Q4H PRN PRN Reason: Pain (moderate 4-6) Last Admin: 02/02/18 23:58 Dose: 2 tab Admin: 02/02/18 13:45 Dose: 2 tab Promethazine HCl (Phenergan) 25 mg IM Q6H PRN PRN Reason: Nausea/Vomiting Sodium Chloride (Saline Flush) 10 ml FLUSH ASDIRECTED PRN PRN Reason: Keep Vein Open Sodium Chloride (Saline Flush) 2.5 ml FLUSH ASDIRECTED PRN PRN Reason: Keep Vein Open - Assessment Assessment (Free Text/Narrative):: S/P KATIE doing well . Consdering discharg this afternoon.
[2018-02-03 11:46] VITALS: BP 121/72
[2018-02-03] MEDS: Acetaminophen/oxyCODONE 325-5 MG Tab PO PRN (13:01)
--- NOTE | 2018-02-03 16:34 | PCM.DCSUM1 ---
Discharge Summary - Discharge Data Discharge Date: 02/03/18 Discharge Disposition: Home, Self-Care 01 Condition: Good - Patient Summary/Data Operative Procedure(s) Performed: Dignostic Laparascopy ,ABHI and bilateral Salpangectomy. - Patient Instructions Diet: Usual Diet as Tolerated Driving: Do Not Drive Showering/Bathing: May Shower Notify Provider of: Fever, Increased Pain, Nausea and/or Vomiting - Discharge Plan Home Medications: Home Meds . [No Known Home Meds] 01/31/18 [History] - General Info Date of Service: 02/03/18 Functional Status: Reports: Pain Controlled - Review of Systems General: Reports: No Symptoms HEENT: Reports: No Symptoms Pulmonary: Reports: No Symptoms Cardiovascular: Reports: No Symptoms Gastrointestinal: Reports: No Symptoms Genitourinary: Reports: No Symptoms Musculoskeletal: Reports: No Symptoms Skin: Reports: No Symptoms Neurological: Reports: No Symptoms Psychiatric: Reports: No Symptoms - Patient Data Vitals - Most Recent: Last Vital Signs Temp 36.2 C 02/03/18 11:45 Pulse 75 02/03/18 11:45 Resp 20 02/03/18 11:45 BP 121/72 02/03/18 11:45 Pulse Ox 99 02/03/18 11:45 Weight - Most Recent: 98.883 kg I&O - Last 24 hours: Intake & Output 02/03/18 02/03/18 02/03/18 06:59 14:59 22:59 Intake Total 500 Output Total 1550 Balance -1050 Lab Results - Last 24 hrs: Laboratory Results - last 24 hr 02/03/18 02/03/18 Range/Units 06:14 06:14 WBC 12.21 H (4.0-11.0) K/uL RBC 3.46 L (4.30-5.90) M/uL Hgb 9.0 L (12.0-16.0) g/dL Hct 27.8 L (36.0-46.0) % MCV 80.3 (80.0-98.0) fL MCH 26.0 L (27.0-32.0) pg MCHC 32.4 (31.0-37.0) g/dL RDW Std Deviation 47.3 (28.0-62.0) fl RDW Coeff of Jarvis 16 H (11.0-15.0) % Plt Count 325 (150-400) K/uL MPV 10.20 (7.40-12.00) fL Neut % (Auto) 71.6 (48.0-80.0) % Lymph % (Auto) 16.3 (16.0-40.0) % [place] % (Auto) 11.8 (0.0-15.0) % Eos % (Auto) 0.2 (0.0-7.0) % Baso % (Auto) 0.1 (0.0-1.5) % Neut # (Auto) 8.8 H (1.4-5.7) K/uL Lymph # (Auto) 2.0 (0.6-2.4) K/uL [place] # (Auto) 1.4 H (0.0-0.8) K/uL Eos # (Auto) 0.0 (0.0-0.7) K/uL Baso # (Auto) 0.0 (0.0-0.1) K/uL Nucleated RBC % 0.0 /100WBC Nucleated RBCs # 0 K/uL Sodium 138 (136-145) mmol/L Potassium 3.8 (3.5-5.1) mmol/L Chloride 105 (98-107) mmol/L Carbon Dioxide 26.4 (21.0-32.0) mmol/L BUN 10 (7.0-18.0) mg/dL Creatinine 0.9 (0.6-1.0) mg/dL Est Cr Clr Drug Dosing 70.32 mL/min Estimated GFR (MDRD) > 60.0 ml/min Glucose 128 H (74-106) mg/dL Calcium 8.5 (8.5-10.1) mg/dL Med Orders - Current: Current Medications Fentanyl (Sublimaze) 50 mcg IVPUSH .Q5MIN PRN PRN Reason: Pain Last Admin: 02/02/18 13:02 Dose: 50 mcg Lactated Ringer's (Ringers, Lactated) 1,000 mls @ 125 mls/hr IV ASDIRECTED [facility] Last Admin: 02/02/18 18:31 Dose: 125 mls/hr Ketorolac Tromethamine (Toradol) 30 mg IVPUSH Q6H PRN PRN Reason: Pain (severe 7-10) Stop: 02/07/18 11:40 Last Admin: 02/03/18 04:25 Dose: 30 mg Morphine Sulfate (Morphine) 4 mg IVPUSH Q2H PRN PRN Reason: Pain (severe 7-10) Last Admin: 02/02/18 17:29 Dose: 4 mg Ondansetron HCl (Zofran) 4 mg IVPUSH Q6H PRN PRN Reason: Nausea/Vomiting Oxycodone/Acetaminophen (Percocet 325-5 Mg) 1 tab PO Q4H PRN PRN Reason: Pain (moderate 4-6) Oxycodone/Acetaminophen (Percocet 325-5 Mg) 2 tab PO Q4H PRN PRN Reason: Pain (moderate 4-6) Last Admin: 02/03/18 13:01 Dose: 2 tab Promethazine HCl (Phenergan) 25 mg IM Q6H PRN PRN Reason: Nausea/Vomiting Sodium Chloride (Saline Flush) 10 ml FLUSH ASDIRECTED PRN PRN Reason: Keep Vein Open Sodium Chloride (Saline Flush) 2.5 ml FLUSH ASDIRECTED PRN PRN Reason: Keep Vein Open Discontinued Medications Cefazolin Sodium/Dextrose (Ancef) Confirm Administered Dose 2 gm IV .STK-MED ONE Stop: 02/02/18 08:30 Dexamethasone (Dexamethasone) Confirm Administered Dose 20 mg .ROUTE .STK-MED ONE Stop: 02/02/18 09:57 Diphenhydramine HCl (Benadryl) Confirm Administered Dose 50 mg .ROUTE .STK-MED ONE Stop: 02/02/18 09:57 Fentanyl (Sublimaze) Confirm Administered Dose 250 mcg .ROUTE .STK-MED ONE Stop: 02/02/18 08:19 Fluorescein Sodium (Ak-Fluor) Confirm Administered Dose 5 ml .ROUTE .STK-MED ONE Stop: 02/02/18 08:33 Hydromorphone HCl (Dilaudid) Confirm Administered Dose 2 mg .ROUTE .STK-MED ONE Stop: 02/02/18 09:29 Hydromorphone HCl (Dilaudid) Confirm Administered Dose 2 mg .ROUTE .STK-MED ONE Stop: 02/02/18 11:47 Cefazolin Sodium/Dextrose 2 gm (/ Premix) 50 mls @ 100 mls/hr IV ONETIME ONE Stop: 02/01/18 08:52 Last Admin: 02/02/18 13:33 Dose: Not Given Ketorolac Tromethamine (Toradol) Confirm Administered Dose 30 mg .ROUTE .STK- MED ONE Stop: 02/02/18 11:35 Ketorolac Tromethamine (Toradol) 30 mg IVPUSH ONETIME ONE Stop: 02/02/18 11:40 Last Admin: 02/02/18 13:33 Dose: Not Given Lidocaine (Xylocaine-Mpf 2%) Confirm Administered Dose 5 ml .ROUTE .STK-MED ONE Stop: 02/02/18 08:19 Midazolam HCl (Versed 1 Mg/Ml) Confirm Administered Dose 2 mg .ROUTE .STK-MED ONE Stop: 02/02/18 08:19 Octyl Cyanoacrylate (Dermabond Advance) Confirm Administered Dose 1 applic .ROUTE .STK-MED ONE Stop: 02/02/18 11:39 Ondansetron HCl (Zofran) Confirm Administered Dose 4 mg .ROUTE .STK-MED ONE Stop: 02/02/18 08:19 Propofol (Diprivan 20 Ml) Confirm Administered Dose 200 mg .ROUTE .STK-MED ONE Stop: 02/02/18 08:19 Rocuronium [place] (Zemuron) Confirm Administered Dose 100 mg .ROUTE .STK-MED ONE Stop: 02/02/18 08:19 Scopolamine (Transderm-Scop) Confirm Administered Dose 1.5 mg .ROUTE .STK-MED ONE Stop: 02/02/18 09:57 Succinylcholine Chloride (Quelicin) Confirm Administered Dose 200 mg .ROUTE .STK -MED ONE Stop: 02/02/18 09:28 - Exam General: Reports: Alert, Oriented HEENT: Reports: Pupils Equal, Pupils Reactive, EOMI, Mucous Membr. Moist/[place] Neck: Reports: Supple Lungs: Reports: Clear to Auscultation, Normal Respiratory Effort Cardiovascular: Reports: Regular Rate, Regular Rhythm GI/Abdominal Exam: Normal Bowel Sounds, Soft, Non-Tender, No Organomegaly, No Distention, No Abnormal Bruit, No Mass, Pelvis Stable (Female) Exam: Normal External Exam, Normal Speculum Exam, Normal Bimanual Exam Rectal (Female) Exam: Normal Exam, Normal Rectal Tone Back Exam: Reports: Normal Inspection, Full Range of Motion Extremities: Normal Inspection, Normal Range of Motion, Non-Tender, No Pedal Edema, Normal Capillary Refill Skin: Reports: Warm, Dry, Intact Wound/Incisions: Reports: Healing Well Neurological: Reports: No New Focal Deficit Psy/Mental Status: Reports: Alert, Normal Affect, Normal Mood
== END 2018-02-03 17:20 | disposition home or self-care (01) ==
LOC: MW.SDS 07:55 → MW.MS 11:40 → MW.SDS 02-03 17:20
PROVIDERS: ATTEND Obstetrics & Gynecology
DX: D25.1 Intramural leiomyoma of uterus (principal); D25.2 Subserosal leiomyoma of uterus; N80.0 Endometriosis of uterus; E66.9 Obesity, unspecified; Z68.30 Body mass index [BMI] 30.0-30.9, adult
CPT/HCPCS: 36415; 58573; 80048; 84703; 85025; 85027; 86850; 86900; 86901; A9270; J0330; J0690; J1100; J1170; J1200; J1885; J2250; J2270; J2405; J3010; J7120; J2704

== ENCOUNTER 2019-07-20 02:31 | Emergency (ER) | payer BC ==
[2019-07-20] MEDS ORDERED: Sodium Chloride 0.9% 10 ML Syringe FLUSH PRN (02:34)
[2019-07-20] MEDS ORDERED: Sodium Chloride 0.9% 2.5 ML Syringe FLUSH PRN (02:34)
[2019-07-20] MEDS ORDERED: Sodium Chloride 0.9% 1,000 ML IV ONE (02:43)
[2019-07-20] MEDS ORDERED: Ondansetron 4 MG/2 ML SDV IVPUSH ONE (02:43)
[2019-07-20] MEDS ORDERED: diphenhydrAMINE 50 MG/ML SDV IVPUSH ONE (02:43)
[2019-07-20] MEDS ORDERED: Ketorolac 30 MG/ML SDV IVPUSH ONE (02:43)
--- NOTE | 2019-07-20 02:48 | EDM.PDOC ---
ED HPI GENERAL MEDICAL PROBLEM - General Chief Complaint: General Stated Complaint: DIZZY Time Seen by Provider: 07/20/19 02:32 - History of Present Illness INITIAL COMMENTS - FREE TEXT/NARRATIVE: HISTORY AND PHYSICAL: History of present illness: The patient is a 44-year-old female works here at [employer] and was doing her job as morning when she suddenly felt dizzy like the room was spinning and she did not fall to the ground but she quickly had to hold onto things and went to the ground. She had multiple episodes of vomiting with the dizziness and still feels nauseated now and with the vomiting there was only food and liquid but no black or blood. Earlier today the patient had a normal evening without any systemic issues such as sinus congestion fever chills head or neck pain abdominal pain nausea or vomiting and the patient has a history of a hysterectomy. She did not take any medications prior to coming here and was immediately driven here by a coworker. The patient did not completely pass out or blackout and says it was more spinning like sensation than a lightheadedness. She has no ear or throat pain. ED she says she feels better laying down keeping her head still and her eyes closed. She says she has never had this before. The patient does admit that she does drink a large amount of caffeinated fluids on a regular basis. The patient says that her upper back feels achy but she has not had a cough and she did not fall with tonight's events. Review of systems: As per history of present illness and below otherwise all systems reviewed and negative. Past medical history: As per history of present illness and as reviewed below otherwise noncontributory. Surgical history: As per history of present illness and as reviewed below otherwise noncontributory. Social history: No reported history of drug or alcohol abuse. Family history: As per history of present illness and as reviewed below otherwise noncontributory. Physical exam: General: Well-developed well-nourished overweight female who is nontoxic and vital signs are noted by me. It is noted that she prefers to keep her eyes closed and her head very still as this reduces her symptoms. There is some evidence of nystagmus with lateral gaze more on the left than on the right. The patient also complains of more symptoms when she looks to the left or moves her head to the left. Patient is not very good at following my commands with respect to this part of the exam and she says she feels like she is so dizzy she is seeing "more than one finger" HEENT: Atraumatic, normocephalic, pupils reactive, negative for conjunctival pallor or scleral icterus, mucous membranes moist, throat clear, neck supple, nontender, trachea midline. No sinus tenderness and the TMs are slightly dull bilaterally but there is no external canal abnormalities seen. There is no mastoid tenderness or redness and no cervical adenopathy or nuchal rigidity Lungs: Clear to auscultation, breath sounds equal bilaterally, chest nontender. Heart: S1S2, regular, negative for clicks, rubs, or JVD. Abdomen: Soft, nondistended, nontender. Negative for masses or hepatosplenomegaly. Negative for costovertebral tenderness. Pelvis: Stable nontender. Genitourinary: Deferred. Rectal: Deferred. Extremities: Atraumatic, negative for cords or calf pain. Neurovascular unremarkable. Full range of motion and no defects are appreciated Neuro: Awake, alert, oriented. Cranial nerves II through XII unremarkable. Cerebellum unremarkable. Motor and sensory unremarkable throughout. Exam nonfocal. Diagnostics: EKG orthostatic vitals CBC CMP troponin TSH UA with reflex UDS CT scan of the head Therapeutics: IV O2 monitor IV fluids Zofran and Benadryl Solu-Medrol, valium and Antivert After the initial meds the patient was telling nursing that she does feel somewhat better but when the nurse tried to sit her up to do orthostatic vitals she became incredibly symptomatic and had to lay down. I will give her a dose of Solu-Medrol and Valium and reevaluate once all testing results are obtained. The patient no longer has this nausea or vomiting but she still remains very dizzy. She is currently laying on her right side trying to rest which is consistent with her symptoms of more dizziness with turning to the left. Patient is currently feeling much improved and was able to get up and go to the bathroom with only slight dizziness. She says she would like to go home and I will give her prescriptions for a Medrol Dosepak Antivert Zofran and Valium area we have cautioned her to follow-up and to reduce her caffeine intake and drink more fluids Impression: Acute dizziness/rule out benign positional vertigo Definitive disposition and diagnosis as appropriate pending reevaluation and review of above. - Related Data Allergies Allergy/AdvReac Type Severity Reaction Status Date / Time No Known Allergies Allergy Verified 07/20/19 02:39 Home Meds: Home Meds . [No Known Home Meds] 01/31/18 [History] Past Medical History - Past Health History Medical/Surgical History: Denies Medical/Surgical History HEENT History: Reports: None Cardiovascular History: Reports: Other (See Below) Other Cardiovascular History: "low blood pressure" Respiratory History: Reports: None Gastrointestinal History: Reports: None Genitourinary History: Reports: None [employer] History: Reports: , Other (See Below) Other [employer]ER History: miscarriage Musculoskeletal History: Reports: Back Pain, Chronic Neurological History: Reports: None Psychiatric History: Reports: None Endocrine/Metabolic History: Reports: Obesity/BMI 30+ Hematologic History: Reports: None Immunologic History: Reports: None Oncologic (Cancer) History: Reports: None Dermatologic History: Reports: None - Infectious Disease History Infectious Disease History: Reports: None - Past Surgical History Head Surgeries/Procedures: Reports: None Female Surgical History: Reports: Section, D&C Social & Family History - Family History Family Medical History: Noncontributory - Caffeine Use Caffeine Use: Reports: Coffee ED ROS GENERAL - Review of Systems Review Of Systems: ROS reveals no pertinent complaints other than HPI. ED EXAM, GENERAL - Physical Exam Exam: See Below (See dictation) Course - Vital Signs Last Recorded V/S: Last Vital Signs Temp 35.9 C 07/20/19 02:35 Pulse 59 L 07/20/19 04:02 Resp 16 07/20/19 04:02 BP 110/69 07/20/19 04:02 Pulse Ox 99 07/20/19 04:02 Orthostatic Blood Pressure [ 115/75 Standing] Orthostatic Blood Pressure [ 121/97 Sitting] Orthostatic Blood Pressure [ 131/81 Supine] - Orders/Labs/Meds Orders: Active Orders 24 hr Category Date Time Status Cardiac Monitoring [RC] . DIRECTED Care 07/20/19 02:34 Active EKG Documentation Completion [RC] STAT Care 07/20/19 02:34 Active Orthostatic Vital Signs [RC] ASDIRECTED Care 07/20/19 02:34 Active Oxygen Therapy, ED [RC] ASDIRECTED Care 07/20/19 02:34 Active Pulse Oximetry [RC] ASDIRECTED Care 07/20/19 02:34 Active DRUG SCREEN, URINE [URCHEM] Stat Lab 07/20/19 04:45 Received Meclizine [Antivert] Med 07/20/19 04:51 Once 25 mg PO ONETIME ONE Sodium Chloride 0.9% [Normal Saline] 1,000 ml Med 07/20/19 03:45 Active IV ASDIRECTED Sodium Chloride 0.9% [Saline Flush] Med 07/20/19 02:34 Active 10 ml FLUSH ASDIRECTED PRN Sodium Chloride 0.9% [Saline Flush] Med 07/20/19 02:34 Active 2.5 ml FLUSH ASDIRECTED PRN Saline Lock Insert [OM.PC] Stat Oth 07/20/19 02:34 Ordered Medication Orders Sodium Chloride (Normal Saline) 1,000 mls @ 125 mls/hr IV ASDIRECTED KARLI Last Infusion: 07/20/19 04:25 Dose: 125 mls/hr Admin: 07/20/19 04:00 Dose: 999 mls/hr Meclizine HCl (Antivert) 25 mg PO ONETIME ONE Stop: 07/20/19 04:52 Sodium Chloride (Saline Flush) 10 ml FLUSH ASDIRECTED PRN PRN Reason: Keep Vein Open Sodium Chloride (Saline Flush) 2.5 ml FLUSH ASDIRECTED PRN PRN Reason: Keep Vein Open Labs: Laboratory Tests 07/20/19 07/20/19 07/20/19 Range/Units 02:35 02:35 04:45 WBC 9.97 (4.0-11.0) K/uL RBC 4.38 (4.30-5.90) M/uL Hgb 13.1 (12.0-16.0) g/dL Hct 39.5 (36.0-46.0) % MCV 90.2 (80.0-98.0) fL MCH 29.9 (27.0-32.0) pg MCHC 33.2 (31.0-37.0) g/dL RDW Std Deviation 45.1 (28.0-62.0) fl RDW Coeff of Jarvis 14 (11.0-15.0) % Plt Count 315 (150-400) K/uL MPV 10.80 (7.40-12.00) fL Neut % (Auto) 63.7 (48.0-80.0) % Lymph % (Auto) 26.9 (16.0-40.0) % [place] % (Auto) 6.7 (0.0-15.0) % Eos % (Auto) 2.5 (0.0-7.0) % Baso % (Auto) 0.2 (0.0-1.5) % Neut # (Auto) 6.4 H (1.4-5.7) K/uL Lymph # (Auto) 2.7 H (0.6-2.4) K/uL [place] # (Auto) 0.7 (0.0-0.8) K/uL Eos # (Auto) 0.3 (0.0-0.7) K/uL Baso # (Auto) 0.0 (0.0-0.1) K/uL Nucleated RBC % 0.0 /100WBC Nucleated RBCs # 0 K/uL Sodium 139 (136-145) mmol/L Potassium 3.8 (3.5-5.1) mmol/L Chloride 103 (98-107) mmol/L Carbon Dioxide 27.3 (21.0-32.0) mmol/L BUN 20 H (7.0-18.0) mg/dL Creatinine 0.8 (0.6-1.0) mg/dL Est Cr Clr Drug Dosing TNP Estimated GFR (MDRD) > 60.0 ml/min Glucose 173 H (74-106) mg/dL Calcium 8.7 (8.5-10.1) mg/dL Total Bilirubin 0.3 (0.2-1.0) mg/dL AST 20 (15-37) IU/L ALT 27 (14-63) IU/L Alkaline Phosphatase 86 (46-116) U/L Troponin I < 0.050 (0.000-0.056) ng/mL Total Protein 7.6 (6.4-8.2) g/dL Albumin 3.5 (3.4-5.0) g/dL Globulin 4.1 H (2.6-4.0) g/dL Albumin/Globulin Ratio 0.9 (0.9-1.6) TSH 3rd Generation 2.42 (0.36-3.74) uIU/mL Urine Color YELLOW Urine Appearance CLEAR Urine pH 7.0 (5.0-8.0) Ur Specific [place] 1.015 (1.001-1.035) Urine Protein NEGATIVE (NEGATIVE) mg/dL Urine Glucose (UA) NEGATIVE (NEGATIVE) mg/dL Urine Ketones NEGATIVE (NEGATIVE) mg/dL Urine Occult Blood NEGATIVE (NEGATIVE) Urine Nitrite NEGATIVE (NEGATIVE) Urine Bilirubin NEGATIVE (NEGATIVE) Urine Urobilinogen 0.2 (<2.0) EU/dL Ur Leukocyte Esterase NEGATIVE (NEGATIVE) Meds: Medications Generic Name Dose Route Start Last Admin Trade Name Freq PRN Reason Stop Dose Admin Sodium Chloride 1,000 mls @ 125 mls/hr 07/20/19 03:45 07/20/19 04:25 Normal Saline IV 125 mls/hr ASDIRECTED KARLI Infusion Meclizine HCl 25 mg 07/20/19 04:51 Antivert PO 07/20/19 04:52 ONETIME ONE Sodium Chloride 10 ml 07/20/19 02:34 Saline Flush FLUSH ASDIRECTED PRN Keep Vein Open Sodium Chloride 2.5 ml 07/20/19 02:34 Saline Flush FLUSH ASDIRECTED PRN Keep Vein Open Discontinued Medications Generic Name Dose Route Start Last Admin Trade Name Freq PRN Reason Stop Dose Admin Diazepam 1 mg 07/20/19 03:30 07/20/19 03:40 Valium IVPUSH 07/20/19 03:31 1 mg ONETIME ONE Administration Diazepam Confirm 07/20/19 03:35 07/20/19 03:42 Valium Administered 07/20/19 03:36 Not Given Dose 5 mg .ROUTE .STK-MED ONE Diphenhydramine HCl 50 mg 07/20/19 02:43 07/20/19 02:51 Benadryl IVPUSH 07/20/19 02:44 50 mg ONETIME ONE Administration Sodium Chloride 1,000 mls @ 999 mls/hr 07/20/19 02:43 07/20/19 02:51 Normal Saline IV 07/20/19 03:43 999 mls/hr STAT ONE Administration Ketorolac Tromethamine 30 mg 07/20/19 02:43 07/20/19 02:49 Toradol IVPUSH 07/20/19 02:44 30 mg ONETIME ONE Administration Methylprednisolone Sodium Succinate 62.5 mg 07/20/19 03:30 07/20/19 03:42 Solu-Medrol IVPUSH 07/20/19 03:31 Not Given ONETIME ONE Methylprednisolone Sodium Succinate 40 mg 07/20/19 03:36 07/20/19 03:42 Solu-Medrol IV 07/20/19 03:37 40 mg ONETIME ONE Administration Methylprednisolone Sodium Succinate Confirm 07/20/19 03:36 07/20/19 03:43 Solu-Medrol Administered 07/20/19 03:37 Not Given Dose 40 mg .ROUTE .STK-MED ONE Ondansetron HCl 4 mg 07/20/19 02:43 07/20/19 02:50 Zofran IVPUSH 07/20/19 02:44 4 mg ONETIME ONE Administration Departure - Departure Time of Disposition: 04:53 Disposition: Home, Self-Care 01 Condition: Good Clinical Impression: Dizziness, Vertigo - Discharge Information Referrals: PCP,None [Primary Care Provider] - Forms: ED Department Discharge Additional Instructions: The following information is given to patients seen in the emergency department who are being discharged to home. This information is to outline your options for follow-up care. We provide all patients seen in our emergency department with a follow-up referral. The need for follow-up, as well as the timing and circumstances, are variable depending upon the specifics of your emergency department visit. If you don't have a primary care physician on staff, we will provide you with a referral. We always advise you to contact your personal physician following an emergency department visit to inform them of the circumstance of the visit and for follow-up with them and/or the need for any referrals to a consulting specialist. The emergency department will also refer you to a specialist when appropriate. This referral assures that you have the opportunity for followup care with a specialist. All of these measure are taken in an effort to provide you with optimal care, which includes your followup. Under all circumstances we always encourage you to contact your private physician who remains a resource for coordinating your care. When calling for followup care, please make the office aware that this follow-up is from your recent emergency room visit. If for any reason you are refused follow-up, please contact the [facility] emergency department at and ask to speak to the emergency department charge nurse. [facility] Primary care- Internal Medicine and Family [facility] [address] [place] [id number] Push hydrating fluids such as water and Gatorade and avoid caffeinated drinks such as power drinks coffee T and pop. Please fill the prescription yet been given for medications and use the Zofran and Valium and Antivert as needed and take the Medrol Dosepak as directed. His connect with your provider in the clinic or one of ours for further care and evaluation of this dizziness as it may recur or persist. Return to ER as needed and as discussed - My Orders Last 24 Hours: My Active Orders 07/20/19 02:34 Cardiac Monitoring [RC] . DIRECTED EKG Documentation Completion [RC] STAT Orthostatic Vital Signs [RC] ASDIRECTED Oxygen Therapy, ED [RC] ASDIRECTED Pulse Oximetry [RC] ASDIRECTED Sodium Chloride 0.9% [Saline Flush] 10 ml FLUSH ASDIRECTED PRN Sodium Chloride 0.9% [Saline Flush] 2.5 ml FLUSH ASDIRECTED PRN Saline Lock Insert [OM.PC] Stat 07/20/19 03:45 Sodium Chloride 0.9% [Normal Saline] 1,000 ml IV ASDIRECTED 07/20/19 04:45 DRUG SCREEN, URINE [URCHEM] Stat 07/20/19 04:51 Meclizine [Antivert] 25 mg PO ONETIME ONE - Assessment/Plan Last 24 Hours: My Active Orders 07/20/19 02:34 Cardiac Monitoring [RC] . DIRECTED EKG Documentation Completion [RC] STAT Orthostatic Vital Signs [RC] ASDIRECTED Oxygen Therapy, ED [RC] ASDIRECTED Pulse Oximetry [RC] ASDIRECTED Sodium Chloride 0.9% [Saline Flush] 10 ml FLUSH ASDIRECTED PRN Sodium Chloride 0.9% [Saline Flush] 2.5 ml FLUSH ASDIRECTED PRN Saline Lock Insert [OM.PC] Stat 07/20/19 03:45 Sodium Chloride 0.9% [Normal Saline] 1,000 ml IV ASDIRECTED 07/20/19 04:45 DRUG SCREEN, URINE [URCHEM] Stat 07/20/19 04:51 Meclizine [Antivert] 25 mg PO ONETIME ONE
[2019-07-20 03:17] LABS: BLOOD UREA NITROGEN,BUN 20 mg/dL (7.0-18.0); CARBON DIOXIDE,CO2 27.3 mmol/L (21.0-32.0); CHLORIDE,CL 103 mmol/L (98-107); GLUCOSE RANDOM 173 mg/dL (74-106); POTASSIUM,K 3.8 mmol/L (3.5-5.1); SODIUM,NA 139 mmol/L (136-145)
[2019-07-20] MEDS ORDERED: methylPREDNISolone Sodium Succinate 125 MG/2 ML SDV IVPUSH ONE (03:30)
[2019-07-20] MEDS ORDERED: diazePAM 5 MG/ML MDV ONE (03:35)
[2019-07-20] MEDS ORDERED: methylPREDNISolone Sodium Succinate 40 MG/1 ML SDV IV ONE (03:36)
[2019-07-20] MEDS ORDERED: methylPREDNISolone Sodium Succinate 40 MG/1 ML SDV ONE (03:36)
[2019-07-20] MEDS ORDERED: Sodium Chloride 0.9% 1,000 ML IV SCH (03:45)
--- NOTE | 2019-07-20 03:56 | CT ---
INDICATION: Dizziness and vomiting TECHNIQUE: Head CT without contrast. COMPARISON: None FINDINGS: CSF spaces: Within normal limits for age. Brain parenchyma: Normal licona-white junction. No sign of mass, hemorrhage, or midline shift. Skull base and calvarium: The visualized paranasal sinuses and mastoid air cells demonstrate no acute or significant findings. The visualized orbits are grossly unremarkable. No skull fractures. IMPRESSION: No acute abnormality Please note that all CT scans at this facility use dose modulation, iterative reconstruction, and/or weight-based dosing when appropriate to reduce radiation dose to as low as reasonably achievable. Dictated by Alma Rosa Cote MD @ Jul 20 2019 3:54AM Signed by Dr. Alma Rosa Cote @ Jul 20 2019 3:54AM
[2019-07-20 04:03] VITALS: BP 110/69; PULSE 59
[2019-07-20] MEDS ORDERED: Meclizine 25 MG Tab PO ONE (04:51)
== END 2019-07-20 05:20 | disposition home or self-care (01) ==
LOC: MW.ED 02:31
DX: R42 Dizziness and giddiness (principal); Z90.710 Acquired absence of both cervix and uterus
CPT/HCPCS: 36415; 70450; 80053; 80305; 81003; 84443; 84484; 85025; 93005; 96361; 96374; 96375; 99284; A9270; J1200; J1885; J2405; J2920; J3360; J7040